=== PATIENT | female | born 1930 | race Caucasian/White ===

== ENCOUNTER → 2016-06-14 | Outpatient (CLI) | payer MEDICARE, OTHER ==
[~2016-06-14] MED LIST: AMLO-114 PO; ASPCH81X PO; ATOR10TA88 PO; CHOL100010 PO; LEVO25TA PO; LOSA1TAB PO; PSYL0.524 PO
[2016-06-14 14:25] LABS: BLOOD UREA NITROGEN 12 mg/dl (7-18); BUN/CREATININE RATIO 13.8 (10-20); CALCIUM 9.3 mg/dl (8.5-10.1); CARBON DIOXIDE 27 mmol/L (21-32); CHLORIDE 105 mmol/L (98-107); CREATININE 0.86 mg/dl (0.60-1.20); GLUCOSE 88 mg/dl (70-99); POTASSIUM 4.1 mmol/L (3.5-5.1); SODIUM 142 mmol/L (136-145)
[2016-06-14 18:57] LABS: URINE APPEARANCE CLEAR (CLEAR); URINE BILIRUBIN NEG (NEG); URINE COLOR DK YELLOW; URINE EPITHELIAL CELL AUTO >30 /lpf (0-5); URINE NITRITE NEG (NEG); URINE PH 5.5 (4.5-7.5); URINE SPECIFIC GRAVITY 1.023 (1.000-1.030); UROBILINOGEN NEG (NEG); ZZUR CULT IF INDIC CLEAN CATCH YES
[2016-06-14 19:04] LABS: MANUAL MICROSCOPIC REQUIRED? NO; REVIEW REQ? YES
[2016-06-14 19:15] LABS: URINE MUCUS PRESENT (NONE PRSENT)
== END | disposition home or self-care (01) ==
LOC: C.LABBFT 07:40
PROVIDERS: ATTEND Internal Medicine
DX: E03.9 Hypothyroidism, unspecified (principal); I10 Essential (primary) hypertension; E55.9 Vitamin D deficiency, unspecified

== ENCOUNTER → 2016-12-24 | Outpatient (CLI) | payer MEDICARE ==
[2016-12-24 12:26] LABS: BASO % 0.8 %; BASO ABS # 0.04 K/uL (0-0.2); COMPLETE YES; EOS % 4.3 %; IG% 0.4 %; LYMPH % 27.4 %; LYMPH ABS # 1.45 K/uL (1.2-3.4); MEAN CELL VOLUME 92.5 fL (80-100); MEAN CORPUSCULAR HGB CONC 32.4 g/dl (32-36); MEAN PLATELET VOLUME 9.9 fL (7.4-10.4); MONO % 13.4 %; NEUT % 53.7 %; PLATELET COUNT 292 K/uL (130-400); RED BLOOD COUNT 4.54 M/uL (4.2-5.4)
[2016-12-24 14:59] LABS: AST/SGOT 14 U/L (15-37); BLOOD UREA NITROGEN 10 mg/dl (7-18); BUN/CREATININE RATIO 14.6 (10-20); CALCIUM 9.3 mg/dl (8.5-10.1); CARBON DIOXIDE 29 mmol/L (21-32); CHLORIDE 107 mmol/L (98-107); CREATININE 0.71 mg/dl (0.60-1.20); GLUCOSE 87 mg/dl (70-99); POTASSIUM 4.2 mmol/L (3.5-5.1); SODIUM 142 mmol/L (136-145)
[2016-12-24 15:10] LABS: ALB/GLOB RATIO 0.9 (0.9-2); ALKALINE PHOSPHATASE 65 U/L (45-117); ALT/SGPT 21 U/L (12-78); CHOLESTEROL 186 mg/dl (0-200); CHOLESTEROL/HDL RATIO 2.3; HDL CHOLESTEROL 80 mg/dl; LDL CHOLESTEROL CALCULATED 84 mg/dl; TRIGLYCERIDES 108 mg/dl (0-150); VERY LOW DENSITY LIPOPROT CALC 22 mg/dl
== END | disposition home or self-care (01) ==
LOC: C.LABBFT 07:32
PROVIDERS: ATTEND Internal Medicine
DX: I10 Essential (primary) hypertension (principal); E55.9 Vitamin D deficiency, unspecified; E78.5 Hyperlipidemia, unspecified; E03.9 Hypothyroidism, unspecified

== ENCOUNTER → 2017-08-12 | Outpatient (CLI) | payer MEDICARE ==
[~2017-08-12] MED LIST changes: +ATOR10TA82 PO; -ATOR10TA88 PO
== END | disposition home or self-care (01) ==
LOC: C.LABBFT 07:16
PROVIDERS: ATTEND Internal Medicine
DX: E03.9 Hypothyroidism, unspecified (principal)

== ENCOUNTER → 2017-09-17 | Outpatient (CLI) | payer MEDICARE ==
[2017-09-17 12:25] LABS: BASO % 0.4 %; BASO ABS # 0.02 K/uL (0-0.2); EOS % 0.2 %; EOS ABS # 0.01 K/uL (0-0.5); HEMATOCRIT 37.5 % (37-47); IG# 0.02 K/uL (0.00-0.02); LYMPH % 26.4 %; LYMPH ABS # 1.41 K/uL (1.2-3.4); MEAN CELL VOLUME 87.6 fL (80-100); MEAN CORPUSCULAR HEMOGLOBIN 30.4 pg (25-34); MEAN CORPUSCULAR HGB CONC 34.7 g/dl (32-36); MEAN PLATELET VOLUME 9.8 fL (7.4-10.4); MONO % 14.4 %; MONO ABS # 0.77 K/uL (0.11-0.59); NEUT % 58.2 %; NEUT ABS # 3.12 K/uL (1.4-6.5); PLATELET COUNT 245 K/uL (130-400); RED CELL DISTRIBUTION WIDTH SD 44.7 fL (36.4-46.3); WHITE BLOOD COUNT 5.35 K/uL (4.8-10.8)
[2017-09-17 12:33] LABS: ALBUMIN 3.3 gm/dl (3.4-5.0); ALT/SGPT 23 U/L (12-78); AST/SGOT 22 U/L (15-37); BLOOD UREA NITROGEN 11 mg/dl (7-18); CALCIUM 8.3 mg/dl (8.5-10.1); CARBON DIOXIDE 24 mmol/L (21-32); GLUCOSE 104 mg/dl (70-99); POTASSIUM 3.3 mmol/L (3.5-5.1); SODIUM 131 mmol/L (136-145)
[2017-09-17 12:44] LABS: ALKALINE PHOSPHATASE 52 U/L (45-117); TOTAL PROTEIN 6.9 gm/dl (6.4-8.2)
== END | disposition home or self-care (01) ==
LOC: C.LABBFT 10:30
PROVIDERS: ATTEND Nurse Practitioner
DX: R53.81 Other malaise (principal); R53.1 Weakness

== ENCOUNTER 2017-09-19 09:34 | Emergency (ER) | payer MEDICARE ==
[~2017-09-19] VITALS: Ht 157.5 cm; Wt 60.0 kg
[2017-09-19 09:39] VITALS: TEMP 36.8; Ht 157.5 cm; Wt 60.0 kg
[2017-09-19] MEDS ORDERED: SODIUM CHLORIDE 0.9% 500ML 500 ML IV STA (09:54)
[2017-09-19 10:23] LABS: BASO % 0.3 %; BASO ABS # 0.02 K/uL (0-0.2); EOS ABS # 0.06 K/uL (0-0.5); HEMATOCRIT 37.2 % (37-47); HEMOGLOBIN 12.9 g/dL (12.0-16.0); IG# 0.01 K/uL (0.00-0.02); LYMPH ABS # 1.46 K/uL (1.2-3.4); MEAN CELL VOLUME 87.5 fL (80-100); MEAN CORPUSCULAR HEMOGLOBIN 30.4 pg (25-34); MEAN CORPUSCULAR HGB CONC 34.7 g/dl (32-36); MEAN PLATELET VOLUME 9.1 fL (7.4-10.4); MONO % 13.8 %; MONO ABS # 0.81 K/uL (0.11-0.59); NEUT % 59.7 %; NEUT ABS # 3.49 K/uL (1.4-6.5); PLATELET COUNT 241 K/uL (130-400); RED CELL DISTRIBUTION WIDTH CV 13.9 % (11.5-14.5); RED CELL DISTRIBUTION WIDTH SD 44.2 fL (36.4-46.3); WHITE BLOOD COUNT 5.85 K/uL (4.8-10.8)
[2017-09-19 10:29] LABS: PTT PATIENT 23.8 SECONDS (21.0-31.0)
[2017-09-19 10:38] LABS: ALBUMIN 3.3 gm/dl (3.4-5.0); CALCIUM 8.4 mg/dl (8.5-10.1); CREATININE 0.71 mg/dl (0.60-1.20); POTASSIUM 3.6 mmol/L (3.5-5.1)
[2017-09-19 10:41] LABS: TOTAL PROTEIN 6.7 gm/dl (6.4-8.2)
--- NOTE | 2017-09-19 10:49 | DIAGNOSTIC IMAGING REPORT ---
CT OF THE HEAD WITHOUT CONTRAST CLINICAL HISTORY: Fall. Head injury. Evaluate for bleed. COMPARISON STUDY: MRI of the brain September 11, 2012. CT DOSE: 537.48 mGy.cm TECHNIQUE: Helical axial images of the head were obtained without IV contrast. Automated exposure control was utilized for the study. A dose lowering technique was utilized adhering to the principles of ALARA. FINDINGS: No acute intracranial hemorrhage, midline shift or mass effect is present. Ventricular system is normal for age. The basilar cisterns are patent. There are no extra axial collections. White matter hypodensity suggests small vessel disease. There is no calvarial fracture. A left maxillary sinus mucous retention cyst is noted. IMPRESSION: 1. No acute intracranial findings. 2. No calvarial fracture. Electronically signed by: Bright Abel M.D. 09/19/2017 10:48 AM Dictated Date/Time: 09/19/2017 10:45 AM
--- NOTE | 2017-09-19 11:23 | DIAGNOSTIC IMAGING REPORT ---
CHEST 2 VIEWS ROUTINE CLINICAL HISTORY: eval for pna COMPARISON STUDY: No previous studies for comparison. FINDINGS: Lung volumes are normal. No pneumothorax or pleural effusion is noted. There is no consolidation or evidence for pulmonary edema. Mild cardiomegaly is noted. IMPRESSION: 1. No acute cardiopulmonary findings. 2. Mild cardiomegaly. Electronically signed by: Bright Abel M.D. 09/19/2017 11:22 AM Dictated Date/Time: 09/19/2017 11:20 AM
--- NOTE | 2017-09-19 12:29 | DIAGNOSTIC IMAGING REPORT ---
CAROTID ARTERY ULTRASOUND CLINICAL HISTORY: Fall. Head injury. Evaluate for stenosis. COMPARISON STUDY: MRA of the neck December 18, 2012. TECHNIQUE: Real-time, grayscale, and color Doppler sonography of the carotid and vertebral arteries was performed. Images were viewed in the transverse and longitudinal planes. FINDINGS: There is mild atherosclerotic plaque. Velocity measurements are listed below. COMMON CAROTID PEAK SYSTOLIC VELOCITY (CM/S): RIGHT 89 LEFT 84 ICA PEAK SYSTOLIC VELOCITY (CM/S): RIGHT 71 LEFT 97 Systolic ratios between the internal to common carotid arteries are normal. Antegrade flow is seen in the vertebral arteries. The external carotid arteries are patent. Blood pressure in the right arm measured 142/59. Blood pressure in the left arm measured 112/53. IMPRESSION: No evidence of a hemodynamically significant stenosis. Electronically signed by: Bright Abel M.D. 09/19/2017 12:27 PM Dictated Date/Time: 09/19/2017 12:26 PM
[2017-09-19] MEDS ORDERED: CEPH500C2 PO (12:47)
[2017-09-19 13:00] VITALS: BP 119/62; PULSE 77; O2SAT 95
--- NOTE | 2017-09-19 16:27 | EMERGENCY ROOM VISIT NOTE ---
History Report prepared by Diana: Bernadine Jones Under the Supervision of: Dr. Kishore Richardson M.D. First contact with patient: 09:44 Chief Complaint: HEAD INJURY (MINOR) Stated Complaint: HEAD INJURY, WEAKNESS History of Present Illness The patient is a 87 year old female who presents to the Emergency Room with complaints of an episode of a fall occurring on Friday, seven days ago. The patient reports she was on her knees to plug in a heater and she slipped on the wooden floor and hit her head. Since Friday, six days ago, the patient has had a decreased appetite, decreased energy and a decreased appetite. She denies any headache, chest pressure or discomfort, shortness of breath, nausea, abdominal pain, black or bloody stools, cough or cold symptoms, or difficulty urinating. The patient states she has only been able to eat an Italian muffin and soup over the past couple days. On Friday, two days ago, the patient had blood work done where she had a temperature of 99 degrees Fahrenheit. The patient has a history of hypertension, high cholesterol, and hypothyroidism. She is on blood pressure medication which she takes regularly. She denies missing any doses of her medication. She denies any lightheadedness when she stands up. The patient reports having a small bowel movement this morning which was normal. Source of History: patient Onset: 7 days ago Position: other (Generalized) Quality: other (Lightheadedness) Timing: constant Modifying Factors (Relieving): other (None) Associated Symptoms: + fatigue, No headache, No cough, No chest pain, No SOB , No nausea, No abdominal pain, No urinary symptoms Review of Systems See HPI for pertinent positives & negatives. A total of 10 systems reviewed and were otherwise negative. Past Medical & Surgical Medical Problems: (1) High cholesterol (2) Hypertension (3) Hypothyroidism Family History Patient reports no known family medical history. Social History Smoking Status: Never Smoker Marital Status: Current/Historical Medications Scheduled Amlodipine (Norvasc), 10 MG PO DAILY Aspirin (Aspirin Chewable), 81 MG PO DAILY Atorvastatin (Lipitor), 10 MG PO DAILY Cephalexin Monohydrate (Keflex), 500 MG PO TID Cholecalciferol (Vitamin D), 1,000 INTER.UNIT PO DAILY Levothyroxine Sodium (Synthroid), 25 MCG PO DAILY Losartan Potassium (Cozaar), 25 MG PO DAILY Scheduled PRN Psyllium (Metamucil), PO for daily Allergies Coded Allergies: Iodinated Contrast Media (Verified Allergy, Severe, ANAPHYLAXIS, 09/22/12) Physical Exam Vital Signs Date Time Temp Pulse Resp B/P (MAP) Pulse Ox O2 Delivery O2 Flow Rate FiO2 09/19/17 13:00 77 20 119/62 95 Room Air 09/19/17 11:30 76 20 122/59 98 Room Air 09/19/17 10:30 71 109/58 96 Room Air 81 109/52 81 104/49 09/19/17 09:39 36.8 83 18 92/56 96 Room Air Physical Exam Constitutional: Vital signs reviewed. Eyes: Pupils are equal round reactive to light. Conjunctiva are noninjected. ENT: Ecchymosis to right forehead, no facial tenderness. Pharynx is clear without erythema or exudate. Mucous membranes are dry. Neck supple without meningeal signs. Respiratory: Clear to auscultation bilaterally. Breath sounds are equal bilaterally. Cardiovascular: Bilateral carotid bruit with systolic heart murmur. Regular rate and rhythm. GI: Soft, nondistended and nontender. Bowel sounds are present. Musculoskeletal: No peripheral edema. No lower extremity tenderness. Integumentary: No cyanosis. Neurological: The patient is awake and alert. Cranial nerves II-XII are intact. Motor is 5 out of 5 all extremities. Sensation is intact to light touch all extremities. Normal speech. No pronator drift. Psychiatric: Normal affect. Medical Decision & Procedures ER Provider Diagnostic Interpretation: Radiology results as stated below per my review and the radiologist's interpretation: CT OF THE HEAD WITHOUT CONTRAST FINDINGS: No acute intracranial hemorrhage, midline shift or mass effect is present. Ventricular system is normal for age. The basilar cisterns are patent. There are no extra axial collections. White matter hypodensity suggests small vessel disease. There is no calvarial fracture. A left maxillary sinus mucous retention cyst is noted. IMPRESSION: 1. No acute intracranial findings. 2. No calvarial fracture. Electronically signed by: Bright Abel M.D. CAROTID ARTERY ULTRASOUND FINDINGS: There is mild atherosclerotic plaque. Velocity measurements are listed below. COMMON CAROTID PEAK SYSTOLIC VELOCITY (CM/S): RIGHT 89 LEFT 84 ICA PEAK SYSTOLIC VELOCITY (CM/S): RIGHT 71 LEFT 97 Systolic ratios between the internal to common carotid arteries are normal. Antegrade flow is seen in the vertebral arteries. The external carotid arteries are patent. Blood pressure in the right arm measured 142/59. Blood pressure in the left arm measured 112/53. IMPRESSION: No evidence of a hemodynamically significant stenosis. Electronically signed by: Bright Abel M.D. CHEST 2 VIEWS ROUTINE FINDINGS: Lung volumes are normal. No pneumothorax or pleural effusion is noted. There is no consolidation or evidence for pulmonary edema. Mild cardiomegaly is noted. IMPRESSION: 1. No acute cardiopulmonary findings. 2. Mild cardiomegaly. Electronically signed by: Bright Abel M.D. Laboratory Results 09/19/17 10:10 Red Blood Count 4.25, Mean Corpuscular Volume 87.5, Mean Corpuscular Hemoglobin 30.4, Mean Corpuscular Hemoglobin Concent 34.7, Mean Platelet Volume 9.1, Neutrophils (%) (Auto) 59.7, Lymphocytes (%) (Auto) 25.0, Monocytes (%) (Auto) 13.8, Eosinophils (%) (Auto) 1.0, Basophils (%) (Auto) 0.3, Neutrophils # (Auto ) 3.49, Lymphocytes # (Auto) 1.46, Monocytes # (Auto) 0.81, Eosinophils # (Auto ) 0.06, Basophils # (Auto) 0.02 09/19/17 10:10 Test 09/19/17 10:10 09/19/17 10:13 09/19/17 11:10 White Blood Count 5.85 K/uL (4.8-10.8) Red Blood Count 4.25 M/uL (4.2-5.4) Hemoglobin 12.9 g/dL (12.0-16.0) Hematocrit 37.2 % (37-47) Mean Corpuscular Volume 87.5 fL (80-100) Mean Corpuscular Hemoglobin 30.4 pg (25-34) Mean Corpuscular Hemoglobin Concent 34.7 g/dl (32-36) Platelet Count 241 K/uL (130-400) Mean Platelet Volume 9.1 fL (7.4-10.4) Neutrophils (%) (Auto) 59.7 % Lymphocytes (%) (Auto) 25.0 % Monocytes (%) (Auto) 13.8 % Eosinophils (%) (Auto) 1.0 % Basophils (%) (Auto) 0.3 % Neutrophils # (Auto) 3.49 K/uL (1.4-6.5) Lymphocytes # (Auto) 1.46 K/uL (1.2-3.4) Monocytes # (Auto) 0.81 K/uL (0.11-0.59) Eosinophils # (Auto) 0.06 K/uL (0-0.5) Basophils # (Auto) 0.02 K/uL (0-0.2) RDW Standard Deviation 44.2 fL (36.4-46.3) RDW Coefficient of Variation 13.9 % (11.5-14.5) Immature Granulocyte % (Auto) 0.2 % Immature Granulocyte # (Auto) 0.01 K/uL (0.00-0.02) Prothrombin Time 10.7 SECONDS (9.0-12.0) Prothromb Time International Ratio 1.0 (0.9-1.1) Activated Partial Thromboplast Time 23.8 SECONDS (21.0-31.0) Partial Thromboplastin Ratio 0.9 Anion Gap 5.0 mmol/L (3-11) Est Creatinine Clear Calc Drug Dose 44.2 ml/min Estimated GFR () 88.8 Estimated GFR (Non- 76.6 BUN/Creatinine Ratio 12.4 (10-20) Calcium Level 8.4 mg/dl (8.5-10.1) Magnesium Level 2.1 mg/dl (1.8-2.4) Total Bilirubin 0.7 mg/dl (0.2-1) Direct Bilirubin 0.2 mg/dl (0-0.2) Aspartate Amino Transf (AST/SGOT) 14 U/L (15-37) Alanine Aminotransferase (ALT/SGPT) 20 U/L (12-78) Alkaline Phosphatase 51 U/L (45-117) Total Protein 6.7 gm/dl (6.4-8.2) Albumin 3.3 gm/dl (3.4-5.0) Lyme Disease IgG Antibody NEG (NEG) Lyme Disease IgM Antibody NEG (NEG) Bedside Troponin I < 0.030 ng/ml (0-0.045) Urine Color YELLOW Urine Appearance CLEAR (CLEAR) Urine pH 7.5 (4.5-7.5) Urine Specific [place] <= 1.005 (1.000-1.030) Urine Protein NEG (NEG) Urine Glucose (UA) NEG (NEG) Urine Ketones NEG (NEG) Urine Occult Blood TRACE (NEG) Urine Nitrite NEG (NEG) Urine Bilirubin NEG (NEG) Urine Urobilinogen NEG (NEG) Urine Leukocyte Esterase LARGE (NEG) Urine RBC 0-4 /hpf (0-4) Urine WBC 10-30 /hpf (0-5) Urine Epithelial Cells >30 /lpf (0-5) Urine Renal Cells 0-5 /lpf (FEW) Urine Bacteria 1+ (NEG) Laboratory results as reviewed by me. Medications Administered Medications (Trade) Dose Ordered Sig/Carmencita Route Start Time Stop Time Status Last Admin Dose Admin Sodium Chloride 500 ml @ 999 mls/hr Q31M STAT IV 09/19/17 09:54 09/19/17 10:24 DC 09/19/17 10:24 999 MLS/HR ECG Per My Interpretation Indication: weakness Rate (beats per minute): 75 Rhythm: normal sinus Findings: other (no ST elevation, no PVC ) ED Course 0946: The patient was evaluated in room B7. A complete history and physical exam was performed. 0954: Ordered Sodium Chloride 500 ml @ 999 mls/hr IV. 1103: On reassessment, the patient's blood pressure has improved. I discussed the patient's test results thus far with her. She reports she has a history of a murmur and it is not new. 1241: I discussed the patient's test results with her and her family. I offered hospitalization to the patient if she did not feel well enough to go home. She would like to go home and start taking the antibiotic for her UTI and increase her PO. 1255: Upon reevaluation, the patient appeared to have improvement of her symptoms. I discussed tonight's findings with her. She verbalized agreement of the treatment plan. The patient was discharged home. Medical Decision This is an 87-year-old female presents with generalized weakness and a fall. Differential diagnosis includes dehydration, metabolic derangement, anemia, infection, UTI, intracranial hemorrhage. I did perform a limited focused review of portions of the patient's old chart on the electronic medical record. The patient had blood work on September 17 which showed mild hyponatremia and hypokalemia. I did evaluate the patient as noted above. Patient is presenting with generalized weakness for about a week. She also states that she has had no appetite and has not been eating much during the day. She has only been having some soup and may be an Italian muffin. She does appear somewhat dehydrated. She also suffered a head injury prior to her symptoms starting. IV access was established. The patient was placed on a continuous cardiac exercise physiologist. I did treat her with normal saline IV. I did order and personally review the patient' s 12-lead EKG and chest x-ray as described above. Her twelve-lead EKG does not show any signs of acute ischemia. Her chest x-ray is unremarkable. I did order and review the patient's blood work as noted in the electronic medical record. Troponin is negative. She is not anemic. Her hypokalemia is resolved and her hyponatremia is improved. I did order a CT of the head. I did review the images myself as well as the radiology report as described above. There is no evidence of acute process on CT scanning. I did order a urine analysis which does show leukocyte esterase, WBCs and bacteria. I did discuss the test results with the patient and her family. At this time the cause of her generalized weakness is unclear, although certainly not eating or drinking very much for a week has been contributing to this. It is also possible that her UTI may be making her weak as well. We did discuss possible hospitalization but she felt well enough to go home and preferred not to be admitted. I did discuss return instructions with her. I did give her a prescription for Keflex for her UTI. She was advised to eat regular meals or at least use Ensure or boost supplementation. She was discharged in good condition. Head Trauma GCS Score: 15 Medication Reconcilliation Current Medication List: was personally reviewed by me Blood Pressure Screening Patient's blood pressure: Low blood pressure Impression Primary Impression: Generalized weakness Additional Impressions: Acute head injury UTI (urinary tract infection) Scribe Attestation The scribe's documentation has been prepared under my direct and personally reviewed by me in its entirety. I confirm that the note above accurately reflects all work, treatment, procedures, and medical decision making performed by me. Departure Information Dispostion Home / Self-Care Prescriptions Cephalexin Monohydrate (KEFLEX) 500 Mg Cap 500 MG PO TID for 7 Days, #21 CAP Prov: Kishore Richardson M.D. 09/19/17 Referrals Sahil Ceron M.D. (PCP) Forms HOME CARE DOCUMENTATION FORM, IMPORTANT VISIT INFORMATION Patient Instructions ED Head Injury Closed, ED UTI Cystitis Female, ED Weakness [facility], [facility] Additional Instructions You have been examined and treated today on an emergency basis only. This is not a substitute for, or an effort to provide, complete comprehensive medical care. It is impossible to recognize and treat all injuries or illnesses in a single emergency department visit. It is therefore important that you follow up closely with your physician. Call as soon as possible for an appointment. Return for worsening symptoms or if you develop fever, vomiting, chest discomfort, shortness of breath or any other concerning symptoms. Problem Qualifiers Additional Impressions: Acute head injury Encounter type: initial encounter Qualified Codes: S09.90XA - Unspecified injury of head, initial encounter UTI (urinary tract infection) Urinary tract infection type: acute cystitis Hematuria presence: without hematuria Qualified Codes: N30.00 - Acute cystitis without hematuria
== END 2017-09-19 13:07 | disposition home or self-care (01) ==
LOC: C.EDB 09:35
DX: S00.83XA Contusion of other part of head, initial encounter (principal); W22.8XXA Striking against or struck by other objects, initial encounter; Y93.89 Activity, other specified; R53.1 Weakness; N30.00 Acute cystitis without hematuria; R40.2412 Glasgow coma scale score 13-15, at arrival to emergency department; I10 Essential (primary) hypertension; Z79.82 Long term (current) use of aspirin; E78.00 Pure hypercholesterolemia, unspecified; E03.9 Hypothyroidism, unspecified; Z91.041 Radiographic dye allergy status

== ENCOUNTER 2017-09-23 08:25 | Observation (INO) | payer MEDICARE, OTHER ==
[~2017-09-23] VITALS: Ht 157.5 cm; Wt 60.0 kg
[~2017-09-23 08:25] MED LIST changes: +CEPH500C2 PO
[2017-09-23] MEDS ORDERED: SODIUM CHLORIDE 0.9% 500ML 500 ML IV STA (09:26)
[2017-09-23 09:35] LABS: BASO % 0.5 %; BASO ABS # 0.03 K/uL (0-0.2); EOS % 1.4 %; EOS ABS # 0.08 K/uL (0-0.5); HEMATOCRIT 36.7 % (37-47); HEMOGLOBIN 12.6 g/dL (12.0-16.0); IG# 0.09 K/uL (0.00-0.02); LYMPH % 16.4 %; LYMPH ABS # 0.93 K/uL (1.2-3.4); MEAN CELL VOLUME 87.8 fL (80-100); MEAN CORPUSCULAR HEMOGLOBIN 30.1 pg (25-34); MEAN CORPUSCULAR HGB CONC 34.3 g/dl (32-36); MEAN PLATELET VOLUME 9.1 fL (7.4-10.4); MONO ABS # 0.85 K/uL (0.11-0.59); NEUT % 65.1 %; NEUT ABS # 3.69 K/uL (1.4-6.5); PLATELET COUNT 307 K/uL (130-400); RED CELL DISTRIBUTION WIDTH CV 13.9 % (11.5-14.5); RED CELL DISTRIBUTION WIDTH SD 44.3 fL (36.4-46.3); WHITE BLOOD COUNT 5.67 K/uL (4.8-10.8)
[2017-09-23] MEDS ORDERED: CHOL100041 PO (09:45)
[2017-09-23] MEDS ORDERED: LPT20 PO (09:46)
[2017-09-23] MEDS ORDERED: LEVO50TA PO (09:46)
--- NOTE | 2017-09-23 09:46 | DIAGNOSTIC IMAGING REPORT ---
CHEST ONE VIEW PORTABLE CLINICAL HISTORY: 87 years-old Female presenting with Pt c/o weakness. TECHNIQUE: Portable upright AP view of the chest was obtained. COMPARISON: 09/19/2017. FINDINGS: Atherosclerosis of aortic arch. Cardiac silhouette mildly enlarged. No focal opacity. No large effusion or pneumothorax. Osseous structures normal. Upper abdomen normal. IMPRESSION: 1. Mild cardiomegaly. No other convincing evidence of acute cardiopulmonary disease. Electronically signed by: Sreekanth Mendoza M.D. 09/23/2017 9:45 AM Dictated Date/Time: 09/23/2017 9:44 AM
[2017-09-23 09:51] LABS: ALBUMIN 3.1 gm/dl (3.4-5.0); ALT/SGPT 19 U/L (12-78); AST/SGOT 13 U/L (15-37); BLOOD UREA NITROGEN 11 mg/dl (7-18); CALCIUM 8.6 mg/dl (8.5-10.1); CARBON DIOXIDE 26 mmol/L (21-32); CREATININE 0.67 mg/dl (0.60-1.20); GLUCOSE 109 mg/dl (70-99); POTASSIUM 3.5 mmol/L (3.5-5.1); SODIUM 136 mmol/L (136-145)
[2017-09-23] MEDS ORDERED: POTASSIUM CHLORIDE 20 MEQ TABCR PO STA (09:52)
[2017-09-23 10:05] LABS: ALKALINE PHOSPHATASE 57 U/L (45-117); CKMB 0.7 ng/ml (0.5-3.6); TOTAL PROTEIN 6.5 gm/dl (6.4-8.2)
[2017-09-23] MEDS ORDERED: POTASSIUM CHLORIDE 10 MEQ TABCR ONE (10:20)
[2017-09-23 10:21] LABS: INFLUENZA B ANTIGEN Neg for Influ B (NEG)
--- NOTE | 2017-09-23 10:40 | DIAGNOSTIC IMAGING REPORT ---
HEAD CT NONCONTRAST CT DOSE: 537.48 mGy.cm HISTORY: Pt c/o fall, weakness TECHNIQUE: Multiaxial CT images of the head were performed without the use of intravenous contrast. Automated exposure control was utilized for this study. A dose lowering technique was utilized adhering to the principles of ALARA. Comparison: Head CT 09/19/2017. Findings: Small retention cysts within the left maxillary sinus. The mastoid air cells are clear. The calvarium and skull base are intact. There is no mass, hematoma, midline shift, acute infarct. White matter hypodensity is nonspecific but suggestive of microvascular ischemic change. The ventricles and sulci demonstrate mild age-related involutional changes. Impression: No significant change compared to the prior study. No acute intracranial abnormality. Electronically signed by: Addi Genao M.D. 09/23/2017 10:38 AM Dictated Date/Time: 09/23/2017 10:33 AM
--- NOTE | 2017-09-23 11:10 | ECHOCARDIOGRAM REPORT ---
*NOTICE TO RECEIVING CONSTITUTION PARTY AGENCY This information is strictly Confidential and protected under [place] law. [place] law prohibits you from making any further disclosure of this information unless further disclosure is expressly permitted by the written consent of the person to whom it pertains or is authorized by law. A general authorization for the release of medical or other information is not sufficient for this purpose. Hospital accepts no responsibility if the information is made available to any other person, INCLUDING THE PATIENT. Interpretation Summary * Name: ANJELICA ROMANO Study Date: 09/23/2017 09:50 AM BP: 121/56 mmHg * Patient Location: [facility] HR: 81 * : 1930 (M/d/yyyy) Gender: Female Height: 62 in * Age: 87 yrs Ethnicity: [place] Weight: 132 lb * Ordering Physician: Jamar Harrison * Referring Physician: Self, Referred * Performed By: Carmencita Wray RDCS * * Reason For Study: MURMURS * BSA: 1.6 m2 * -- Conclusions -- * There is mild concentric left ventricular hypertrophy. * Left ventricular systolic function is normal. * Grade I diastolic dysfunction, (abnormal relaxation pattern). * Moderate valvular aortic stenosis. * There is mild mitral annular calcification. * There is mild mitral regurgitation. * Compared to an echocardiogram from 12/21/2014, there has been minimal change. Procedure Details * A complete two-dimensional transthoracic echocardiogram was performed (2D, M-mode, Doppler and color flow Doppler). Left Ventricle * The left ventricle is normal in size. * There is mild concentric left ventricular hypertrophy. * Left ventricular systolic function is normal. * Ejection Fraction = 55-60%. * Grade I diastolic dysfunction, (abnormal relaxation pattern). * The left ventricular wall motion is normal. Right Ventricle * The right ventricle is normal in size and function. * The right ventricular systolic function is normal as assessed by tricuspid annular plane systolic excursion (TAPSE) (normal >1.5 cm). Atria * The left atrial size is normal. * Right atrial size is normal. Mitral Valve * There is mild mitral annular calcification. * There is mild mitral regurgitation. Tricuspid Valve * The tricuspid valve is not well visualized, but is grossly normal. * Significant tricuspid regurgitation is absent. Aortic Valve * Moderate valvular aortic stenosis. * There is no significant aortic regurgitation. Pulmonic Valve * The pulmonic valve is not well visualized. Pericardium/Pleural * There is no pericardial effusion. MMode 2D Measurements and Calculations IVSd 1.2 cm IVSs 1.6 cm LVIDd 4.0 cm LVIDs 2.6 cm LVPWd 1.1 cm LVPWs 1.7 cm IVS/LVPW 1.0 FS 35.7 % EDV(Teich) 71.7 ml ESV(Teich) 24.6 ml EF(Teich) 65.7 % EDV(cubed) 65.9 ml ESV(cubed) 17.5 ml EF(cubed) 73.4 % % IVS thick 38.0 % % LVPW thick 43.7 % LV mass(C)d 159.1 grams LV mass(C)dI 99.3 grams/m\S\2 LV mass(C)s 153.0 grams LV mass(C)sI 95.5 grams/m\S\2 SV(Teich) 47.1 ml SI(Teich) 29.4 ml/m\S\2 SV(cubed) 48.4 ml SI(cubed) 30.2 ml/m\S\2 LVOT diam 2.0 cm LVOT area 3.3 cm\S\2 LVAd ap4 20.9 cm\S\2 LVLd ap4 6.9 cm EDV(MOD-sp4) 54.6 ml EDV(sp4-el) 54.2 ml LVAs ap4 10.4 cm\S\2 LVLs ap4 5.7 cm ESV(MOD-sp4) 16.7 ml ESV(sp4-el) 16.1 ml EF(MOD-sp4) 69.4 % EF(sp4-el) 70.2 % LVAd ap2 21.2 cm\S\2 LVLd ap2 7.0 cm EDV(MOD-sp2) 52.3 ml EDV(sp2-el) 54.0 ml LVAs ap2 11.3 cm\S\2 LVLs ap2 6.1 cm ESV(MOD-sp2) 18.9 ml ESV(sp2-el) 18.0 ml EF(MOD-sp2) 63.8 % EF(sp2-el) 66.7 % LVLd %diff 2.4 % EDV(MOD-bp) 54.1 ml LVLs %diff 6.4 % ESV(MOD-bp) 17.7 ml EF(MOD-bp) 67.3 % SV(MOD-sp4) 37.9 ml SI(MOD-sp4) 23.7 ml/m\S\2 SV(MOD-sp2) 33.4 ml SI(MOD-sp2) 20.8 ml/m\S\2 SV(MOD-bp) 36.4 ml SI(MOD-bp) 22.7 ml/m\S\2 SV(sp4-el) 38.0 ml SI(sp4-el) 23.7 ml/m\S\2 SV(sp2-el) 36.0 ml SI(sp2-el) 22.5 ml/m\S\2 Doppler Measurements and Calculations MV E max miles 90.3 cm/sec MV A max miles 120.9 cm/sec MV E/A 0.75 MV dec time 0.23 sec Ao V2 max 292.6 cm/sec Ao max PG 34.2 mmHg Ao max PG (full) 30.2 mmHg Ao V2 mean 201.9 cm/sec Ao mean PG 17.6 mmHg Ao mean PG (full) 16.0 mmHg Ao V2 VTI 55.4 cm NKECHI(I,A) 1.2 cm\S\2 NKECHI(I,D) 1.2 cm\S\2 NKECHI(V,A) 1.1 cm\S\2 NKECHI(V,D) 1.1 cm\S\2 LV V1 max PG 4.0 mmHg LV V1 mean PG 1.6 mmHg LV V1 max 100.1 cm/sec LV V1 mean 57.2 cm/sec LV V1 VTI 20.3 cm SV(LVOT) 66.5 ml SI(LVOT) 41.5 ml/m\S\2
[2017-09-23] MEDS ORDERED: ONDANSETRON INJ 2 MG/ML 2 ML VIAL IV PRN (11:30)
[2017-09-23] MEDS ORDERED: ALUMINUM/MAGNESIUM/SIMETH (MAALOX MAX) 30 ML UDC PO PRN (11:30)
[2017-09-23] MEDS ORDERED: HEPARIN SOD 5000 UNIT/0.5 ML CARP SQ SCH (11:30)
[2017-09-23] MEDS ORDERED: ACETAMINOPHEN 325 MG TAB PO PRN (11:30)
[2017-09-23] MEDS ORDERED: MAGNESIUM HYDROXIDE SUSP 30 ML UDC PO PRN (11:30)
[2017-09-23] MEDS ORDERED: POLYETHYLENE (MIRALAX) 17 GM PACK PO PRN (11:30)
--- NOTE | 2017-09-23 11:49 | EMERGENCY ROOM VISIT NOTE ---
History Report prepared by Diana: Juice Saeed Under the Supervision of: Dr. Jamar Harrison M.D. First contact with patient: 09:16 Chief Complaint: WEAKNESS Stated Complaint: WEAKNESS, NO APPETITE History of Present Illness The patient is an 87 year old female who presents to the Emergency Room with complaints of worsening weakness and fatigue that began on Friday, 4 days ago. The patient's grandson at bedside states that the patient was in the department in Friday, but notes that her symptoms have worsened since then. The patient has no appetite at this time. She adds that she did fall 11 days ago and hit her head. She is not currently having any headache. Source of History: patient, family Onset: 4 days ago Position: other (Generalized) Quality: other (Weakness) Timing: worsening Associated Symptoms: No headache Review of Systems See HPI for pertinent positives & negatives. A total of 10 systems reviewed and were otherwise negative. Past Medical & Surgical Medical Problems: (1) Gait abnormality (2) High cholesterol (3) Hypertension (4) Hypothyroidism Family History Patient reports no known family medical history. Social History Smoking Status: Former Smoker Marital Status: Current/Historical Medications Scheduled Amlodipine (Norvasc), 10 MG PO DAILY Aspirin (Aspirin Chewable), 81 MG PO DAILY Atorvastatin (Lipitor), 20 MG PO DAILY Cholecalciferol (D 1000), 1,000 UNITS PO DAILY Levothyroxine Sodium (Synthroid), 50 MCG PO DAILY Losartan Potassium (Cozaar), 25 MG PO DAILY Allergies Coded Allergies: Iodinated Contrast Media (Verified Allergy, Severe, ANAPHYLAXIS, 09/23/17) Physical Exam Vital Signs Date Time Temp Pulse Resp B/P (MAP) Pulse Ox O2 Delivery O2 Flow Rate FiO2 09/23/17 11:20 78 15 98 09/23/17 11:05 78 22 96 09/23/17 11:00 79 27 129/52 99 09/23/17 10:45 79 22 97 09/23/17 10:40 138/62 09/23/17 10:15 87 22 95 09/23/17 10:10 80 20 95 09/23/17 10:00 121/56 09/23/17 09:55 79 18 96 09/23/17 09:46 122/58 09/23/17 09:45 117/59 09/23/17 09:44 77 18 117/58 95 Room Air 81 117/59 88 122/58 09/23/17 09:43 117/58 09/23/17 09:40 77 19 95 09/23/17 09:30 118/61 09/23/17 09:25 79 19 95 09/23/17 09:10 81 16 93 09/23/17 09:00 119/59 09/23/17 09:00 85 19 119/59 96 Room Air 09/23/17 08:57 81 09/23/17 08:55 83 23 09/23/17 08:53 114/56 09/23/17 08:50 93 Room Air 09/23/17 08:32 36.6 90 18 93/58 95 Room Air Physical Exam GENERAL: Awake, alert, well-appearing, in no acute distress HENT: There is a healing bruise to the right eye orbit. Oropharynx unremarkable. EYES: Normal conjunctiva. Sclera non-icteric. NECK: Supple. No nuchal rigidity. FROM. No JVD. RESPIRATORY: Clear to auscultation. CARDIAC: Regular rate, normal rhythm. 2/6 systolic murmur appreciated. Extremities warm and well perfused. Pulses equal. ABDOMEN: Soft, non-distended. No tenderness to palpation. No rebound or guarding. No masses. RECTAL: Deferred. MUSCULOSKELETAL: Chest examination reveals no tenderness. The back is symmetrical on inspection without obvious abnormality. There is no CVA tenderness to palpation. No joint edema. LOWER EXTREMITIES: Calves are equal size bilaterally and non-tender. No edema. No discoloration. NEURO: Normal sensorium. No sensory or motor deficits noted. SKIN: No rash or jaundice noted. Medical Decision & Procedures ER Provider Diagnostic Interpretation: Radiology results as stated below per my review and radiologist interpretation: CHEST ONE VIEW PORTABLE CLINICAL HISTORY: 87 years-old Female presenting with Pt c/o weakness. TECHNIQUE: Portable upright AP view of the chest was obtained. COMPARISON: 09/19/2017. FINDINGS: Atherosclerosis of aortic arch. Cardiac silhouette mildly enlarged. No focal opacity. No large effusion or pneumothorax. Osseous structures normal. Upper abdomen normal. IMPRESSION: 1. Mild cardiomegaly. No other convincing evidence of acute cardiopulmonary disease. Electronically signed by: Sreekanth Mendoza M.D. 09/23/2017 9:45 AM Dictated Date/Time: 09/23/2017 9:[address]AST CT DOSE: 537.48 mGy.cm HISTORY: Pt c/o fall, weakness TECHNIQUE: Multiaxial CT images of the head were performed without the use of intravenous contrast. Automated exposure control was utilized for this study. A dose lowering technique was utilized adhering to the principles of ALARA. Comparison: Head CT 09/19/2017. Findings: Small retention cysts within the left maxillary sinus. The mastoid air cells are clear. The calvarium and skull base are intact. There is no mass, hematoma, midline shift, acute infarct. White matter hypodensity is nonspecific but suggestive of microvascular ischemic change. The ventricles and sulci demonstrate mild age-related involutional changes. Impression: No significant change compared to the prior study. No acute intracranial abnormality. Electronically signed by: Addi Genao M.D. 09/23/2017 10:38 AM Dictated Date/Time: 09/23/2017 10:33 AM Laboratory Results 09/23/17 09:00 Red Blood Count 4.18, Mean Corpuscular Volume 87.8, Mean Corpuscular Hemoglobin 30.1, Mean Corpuscular Hemoglobin Concent 34.3, Mean Platelet Volume 9.1, Neutrophils (%) (Auto) 65.1, Lymphocytes (%) (Auto) 16.4, Monocytes (%) (Auto) 15.0, Eosinophils (%) (Auto) 1.4, Basophils (%) (Auto) 0.5, Neutrophils # (Auto ) 3.69, Lymphocytes # (Auto) 0.93, Monocytes # (Auto) 0.85, Eosinophils # (Auto ) 0.08, Basophils # (Auto) 0.03 09/23/17 09:00 Test 09/23/17 08:55 09/23/17 09:00 09/23/17 09:45 Bedside Glucose 116 mg/dl (70-90) White Blood Count 5.67 K/uL (4.8-10.8) Red Blood Count 4.18 M/uL (4.2-5.4) Hemoglobin 12.6 g/dL (12.0-16.0) Hematocrit 36.7 % (37-47) Mean Corpuscular Volume 87.8 fL (80-100) Mean Corpuscular Hemoglobin 30.1 pg (25-34) Mean Corpuscular Hemoglobin Concent 34.3 g/dl (32-36) Platelet Count 307 K/uL (130-400) Mean Platelet Volume 9.1 fL (7.4-10.4) Neutrophils (%) (Auto) 65.1 % Lymphocytes (%) (Auto) 16.4 % Monocytes (%) (Auto) 15.0 % Eosinophils (%) (Auto) 1.4 % Basophils (%) (Auto) 0.5 % Neutrophils # (Auto) 3.69 K/uL (1.4-6.5) Lymphocytes # (Auto) 0.93 K/uL (1.2-3.4) Monocytes # (Auto) 0.85 K/uL (0.11-0.59) Eosinophils # (Auto) 0.08 K/uL (0-0.5) Basophils # (Auto) 0.03 K/uL (0-0.2) RDW Standard Deviation 44.3 fL (36.4-46.3) RDW Coefficient of Variation 13.9 % (11.5-14.5) Immature Granulocyte % (Auto) 1.6 % Immature Granulocyte # (Auto) 0.09 K/uL (0.00-0.02) Erythrocyte Sedimentation Rate 21 mm/hr (0-21) Urine Color YELLOW Urine Appearance CLEAR (CLEAR) Urine pH 6.0 (4.5-7.5) Urine Specific [place] 1.014 (1.000-1.030) Urine Protein NEG (NEG) Urine Glucose (UA) NEG (NEG) Urine Ketones NEG (NEG) Urine Occult Blood NEG (NEG) Urine Nitrite NEG (NEG) Urine Bilirubin NEG (NEG) Urine Urobilinogen NEG (NEG) Urine Leukocyte Esterase NEG (NEG) Anion Gap 7.0 mmol/L (3-11) Est Creatinine Clear Calc Drug Dose 46.8 ml/min Estimated GFR () 91.6 Estimated GFR (Non- 79.0 BUN/Creatinine Ratio 16.3 (10-20) Calcium Level 8.6 mg/dl (8.5-10.1) Phosphorus Level 2.9 mg/dl (2.5-4.9) Magnesium Level 2.0 mg/dl (1.8-2.4) Total Bilirubin 0.4 mg/dl (0.2-1) Direct Bilirubin < 0.1 mg/dl (0-0.2) Aspartate Amino Transf (AST/SGOT) 13 U/L (15-37) Alanine Aminotransferase (ALT/SGPT) 19 U/L (12-78) Alkaline Phosphatase 57 U/L (45-117) Total Creatine Kinase 34 U/L (26-192) Creatine Kinase MB 0.7 ng/ml (0.5-3.6) Creatine Kinase MB Ratio 2.1 (0-3.0) Troponin I < 0.015 ng/ml (0-0.045) Total Protein 6.5 gm/dl (6.4-8.2) Albumin 3.1 gm/dl (3.4-5.0) Thyroid Stimulating Hormone (TSH) 1.310 uIu/ml (0.300-4.500) Influenza Type A Antigen Neg for Influ A (NEG) Influenza Type B Antigen Neg for Influ B (NEG) Labs reviewed by ED physician. Medications Administered Medications (Trade) Dose Ordered Sig/Carmencita Route Start Time Stop Time Status Last Admin Dose Admin Sodium Chloride 500 ml @ 999 mls/hr Q31M STAT IV 09/23/17 09:26 09/23/17 09:56 DC 09/23/17 10:00 999 MLS/HR Potassium Chloride (Klor-Con M10) 40 meq STK-MED ONCE .ROUTE 09/23/17 10:20 09/23/17 10:21 DC 09/23/17 10:30 40 MEQ ECG Per My Interpretation Indication: weakness Rate (beats per minute): 83 Rhythm: normal sinus Findings: other (NOrmal [place], NO ectopy) ED Course 916: Past medical records reviewed. The patient was evaluated in room B9. A complete history and physical examination was performed. 0926: Ordered Sodium Chloride 500 mL @ 999 mL/hr IV 0932: I discussed the case with Dr. Sharma - Cardiology. He will take the patient for a STAT echocardiogram. 0952: Ordered Potassium Chloride 40 meq PO. 1108: Dr. Sharma states that the echocardiogram is unchanged from previous 1129: I discussed the case with Dr. Yovani Clayton - [facility] [place] Hospitalist. He will evaluate the patient for further treatment. 1130: Ordered Heparin Sodium 5000 unit SQ. Medical Decision Differential diagnosis: Etiologies such as metabolic, infection, hypo/hyperglycemia, electrolyte abnormalities, cardiac sources, intracerebral event, toxicologic, neurologic, as well as others were entertained. This is an 87-year-old female who presents the emergency department complaining of generalized weakness that has been getting progressively worse. Patient has had multiple falls at home. Due to the nature of the patient's symptoms a CBC renal profile liver profile lipase cardiac enzymes and EKG were performed she has a normal CAT scan of the head as well as chest x-ray. Due to the patient's past medical history I did discuss the case with cardiology and was able to obtain a stat echo. This does not show any worsening of her aortic stenosis. Patient feels she is too weak to go home she was given a normal saline bolus here in the emergency department and I did discuss the case with the hospitalist service who agreed to admit the patient. Patient and family were in agreement with the treatment plan. Medication Reconcilliation Current Medication List: was personally reviewed by me Blood Pressure Screening Patient's blood pressure: Normal blood pressure Impression Primary Impression: Weakness Additional Impression: Aortic stenosis Scribe Attestation The scribe's documentation has been prepared under my direction and personally reviewed by me in its entirety. I confirm that the note above accurately reflects all work, treatment, procedures, and medical decision making performed by me. Departure Information Dispostion Being Evaluated By Hospitalist Referrals Sahil Ceron M.D. (PCP) Patient Instructions My [facility] Problem Qualifiers Additional Impression: Aortic stenosis Cardiac valve disease etiology: etiology unspecified Qualified Codes: I35.0 - Nonrheumatic aortic (valve) stenosis
[2017-09-23 11:55] VITALS: BP 128/72; PULSE 80; TEMP 36.6; O2SAT 95; BMI 24.2
--- NOTE | 2017-09-23 12:27 | History and Physical ---
History & Physical Date & Time of Service: September 23, 2017 at 12:09 Chief Complaint: Weakness, No Appetite Primary Care Physician: Sahil Ceron M.D. History of Present Illness Source: patient, family, hospital records 87 y/o F Hx HTN, HPL, hypothyroidism, aortic stenosis. Pt states that approximately 10 days ago she was cleaning her floor, lost her balance and fell , suffering trauma to the R side of her forehead. She felt like the trauma was significant, although she denies LOC at the time. Since suffering the fall, she states she has been progressively weak, off balance and has lost her appetite. Family reports that she is currently unable to transfer without assistance and is therefore unable to manage independently. Initial workup in the ER included labs, echocardiogram and CT of the head. No acute abnormalities are noted. Past Medical/Surgical History 1) Moderate aortic stenosis 2) HTN 3) HPL 4) Breast CA Family History Patient reports no known family medical history. Social History Smoking Status: Former Smoker Marital Status: Allergies Coded Allergies: Iodinated Contrast Media (Verified Allergy, Severe, ANAPHYLAXIS, 09/23/17) Home Medications Scheduled Amlodipine (Norvasc), 10 MG PO DAILY Aspirin (Aspirin Chewable), 81 MG PO DAILY Atorvastatin (Lipitor), 20 MG PO DAILY Cholecalciferol (D 1000), 1,000 UNITS PO DAILY Levothyroxine Sodium (Synthroid), 50 MCG PO DAILY Losartan Potassium (Cozaar), 25 MG PO DAILY Review of Systems Constitutional: + weakness, No fever, No chills, No sweats Eyes: No worsening of vision ENT: No hearing loss, No unusual epistaxis, No nasal symptoms Respiratory: No cough, No sputum Cardiovascular: No chest pain, No orthopnea Abdomen: No pain, No nausea Musculoskeletal: No joint pain Genitourinary - Female: No dysuria, No urinary frequency Neurologic: + weakness, No memory loss, No paralysis Psychiatric: No depression symptoms Endocrine: + fatigue Hematologic / Lymphatic: No abnormal bleeding/bruising Integumentary: No rash Allergic / Immunologic: No environmental allergies Physical Exam Vital Signs Date Time Temp Pulse Resp B/P (MAP) Pulse Ox O2 Delivery O2 Flow Rate FiO2 09/23/17 11:00 79 27 129/52 99 09/23/17 10:45 79 22 97 09/23/17 10:40 138/62 09/23/17 10:15 87 22 95 09/23/17 10:10 80 20 95 09/23/17 10:00 121/56 09/23/17 09:55 79 18 96 09/23/17 09:46 122/58 09/23/17 09:45 117/59 09/23/17 09:44 77 18 117/58 95 Room Air 81 117/59 88 122/58 09/23/17 09:43 117/58 09/23/17 09:40 77 19 95 09/23/17 09:30 118/61 09/23/17 09:25 79 19 95 09/23/17 09:10 81 16 93 09/23/17 09:00 119/59 09/23/17 09:00 85 19 119/59 96 Room Air 09/23/17 08:57 81 09/23/17 08:55 83 23 09/23/17 08:53 114/56 09/23/17 08:50 93 Room Air 09/23/17 08:32 36.6 90 18 93/58 95 Room Air General Appearance: WD/WN, no apparent distress Head: normocephalic Eyes: normal inspection ENT: normal ENT inspection, pharynx normal Neck: supple Respiratory/Chest: chest non-tender, lungs clear, normal breath sounds Cardiovascular: regular rate, rhythm, no edema, + systolic murmur Abdomen/GI: normal bowel sounds, non tender, soft Back: normal inspection, no CVA tenderness Extremities/Musculoskelatal: normal inspection, no calf tenderness, normal capillary refill Neurologic/Psych: nurse ob II-XII nml as tested, no motor/sensory deficits, alert, oriented x 3, + abnormal cerebellar tests Diagnostics Laboratory Results Results Past 24 Hours Test 09/23/17 09:00 09/23/17 09:45 Range/Units White Blood Count 5.67 4.8-10.8 K/uL Red Blood Count 4.18 4.2-5.4 M/uL Hemoglobin 12.6 12.0-16.0 g/dL Hematocrit 36.7 37-47 % Mean Corpuscular Volume 87.8 80-100 fL Mean Corpuscular Hemoglobin 30.1 25-34 pg Mean Corpuscular Hemoglobin Concent 34.3 32-36 g/dl Platelet Count 307 130-400 K/uL Mean Platelet Volume 9.1 7.4-10.4 fL Neutrophils (%) (Auto) 65.1 % Lymphocytes (%) (Auto) 16.4 % Monocytes (%) (Auto) 15.0 % Eosinophils (%) (Auto) 1.4 % Basophils (%) (Auto) 0.5 % Neutrophils # (Auto) 3.69 1.4-6.5 K/uL Lymphocytes # (Auto) 0.93 1.2-3.4 K/uL Monocytes # (Auto) 0.85 0.11-0.59 K/uL Eosinophils # (Auto) 0.08 0-0.5 K/uL Basophils # (Auto) 0.03 0-0.2 K/uL RDW Standard Deviation 44.3 36.4-46.3 fL RDW Coefficient of Variation 13.9 11.5-14.5 % Immature Granulocyte % (Auto) 1.6 % Immature Granulocyte # (Auto) 0.09 0.00-0.02 K/uL Urine Color YELLOW Urine Appearance CLEAR CLEAR Urine pH 6.0 4.5-7.5 Urine Specific [place] 1.014 1.000-1.030 Urine Protein NEG NEG Urine Glucose (UA) NEG NEG Urine Ketones NEG NEG Urine Occult Blood NEG NEG Urine Nitrite NEG NEG Urine Bilirubin NEG NEG Urine Urobilinogen NEG NEG Urine Leukocyte Esterase NEG NEG Sodium Level 136 136-145 mmol/L Potassium Level 3.5 3.5-5.1 mmol/L Chloride Level 103 98-107 mmol/L Carbon Dioxide Level 26 21-32 mmol/L Anion Gap 7.0 3-11 mmol/L Blood Urea Nitrogen 11 7-18 mg/dl Creatinine 0.67 0.60-1.20 mg/dl Est Creatinine Clear Calc Drug Dose 46.8 ml/min Estimated GFR () 91.6 Estimated GFR (Non- 79.0 BUN/Creatinine Ratio 16.3 10-20 Random Glucose 109 70-99 mg/dl Calcium Level 8.6 8.5-10.1 mg/dl Total Bilirubin 0.4 0.2-1 mg/dl Direct Bilirubin < 0.1 0-0.2 mg/dl Aspartate Amino Transf (AST/SGOT) 13 15-37 U/L Alanine Aminotransferase (ALT/SGPT) 19 12-78 U/L Alkaline Phosphatase 57 45-117 U/L Total Creatine Kinase 34 26-192 U/L Creatine Kinase MB 0.7 0.5-3.6 ng/ml Creatine Kinase MB Ratio 2.1 0-3.0 Troponin I < 0.015 0-0.045 ng/ml Total Protein 6.5 6.4-8.2 gm/dl Albumin 3.1 3.4-5.0 gm/dl Thyroid Stimulating Hormone (TSH) 1.310 0.300-4.500 uIu/ml Influenza Type A Antigen Neg for Influ A NEG Influenza Type B Antigen Neg for Influ B NEG Diagnostic Radiology CT head - no acute abnormalities ECHO: moderate - EF 65% EKG NSR, L axis Impression Assessment and Plan 87 y/o F Hx HTN, HPL, hypothyroidism, aortic stenosis. Pt states that approximately 10 days ago she was cleaning her floor, lost her balance and fell , suffering trauma to the R side of her forehead. She felt like the trauma was significant, although she denies LOC at the time. Since suffering the fall, she states she has been progressively weak, off balance and has lost her appetite. Family reports that she is currently unable to transfer without assistance and is therefore unable to manage independently. Initial workup in the ER included labs, echocardiogram and CT of the head. No acute abnormalities are noted. 1) Weakness - cause is not clear - not likely related to initial head trauma at present. She may need a thorough neuro evaluation. PT/OT consulted as she may need transfer to rehab. 2) HTN - cont Norvasc 3) HPL - cont Atorvastatin 4) -moderate - has not progressed - can f/u as outpt with her neon technician Full code - SCDs due to fall risk Total time for this admit including review of labs, meds, EKG, echo, records - discussion with pt and ER attending - 37 min Resuscitation Status VTE Prophylaxis Will order VTE Prophylaxis: Yes
[2017-09-23 12:48] LABS: PHOSPHORUS 2.9 mg/dl (2.5-4.9)
[2017-09-23] MEDS ORDERED: NURSING DECISION MEDICATION ORDER SCH (15:15)
[2017-09-23] MEDS ORDERED: SODIUM CHLORIDE 0.65% NA SOLN 45 ML (OCEAN) PRN (15:30)
[2017-09-23 15:58] VITALS: BP 102/61; PULSE 88; TEMP 36.7; O2SAT 97
[2017-09-23 16:00] VITALS: O2SAT 97
[2017-09-23] MEDS ORDERED: NURSING VERBAL MED ORDER ONE (16:15)
[2017-09-23] MEDS: LOSARTAN POTASSIUM 25 MG TAB PO SCH (17:05)
[2017-09-23] MEDS: BOOST VANILLA PO SCH (17:05)
[2017-09-23] MEDS: ATORVASTATIN 20 MG TAB PO SCH (20:31)
[2017-09-23 20:37] VITALS: BP_SYST 103; BP_SYST 124; BP_SYST 129; BP_DIAS 65; BP_DIAS 71; O2SAT 74
[2017-09-23 20:40] VITALS: PULSE 74; PULSE 85
[2017-09-24 00:31] VITALS: BP 121/74; PULSE 82; TEMP 36.7; O2SAT 95
[2017-09-24] MEDS: LEVOTHYROXINE 50 MCG TAB PO SCH (06:34)
[2017-09-24 07:33] VITALS: BP_SYST 105; BP_SYST 109; BP_SYST 122; BP_DIAS 69; BP_DIAS 70; BP_DIAS 76; PULSE 81; TEMP 36.4; O2SAT 97
[2017-09-24] MEDS: BOOST VANILLA PO SCH ×3 (07:39→17:08)
[2017-09-24] MEDS: AMLODIPINE BESYLATE 5 MG TAB PO SCH (07:40)
[2017-09-24] MEDS: CHOLECALCIFEROL 1000 INTER.UNIT TAB PO SCH (07:40)
[2017-09-24] MEDS: ASPIRIN 81 MG CHEW PO SCH (07:40)
[2017-09-24 08:00] VITALS: O2SAT 97
[2017-09-24] MEDS ORDERED: LOSARTAN POTASSIUM 25 MG TAB PO SCH (08:00)
[2017-09-24] MEDS ORDERED: ATORVASTATIN 20 MG TAB PO SCH (08:00)
[2017-09-24] MEDS ORDERED: MEGESTROL ACETATE SUSP 400 MG/10 ML UDC PO ONE (11:00)
[2017-09-24] MEDS ORDERED: PANTOprazole SOD 40 MG TAB PO ONE (11:00)
[2017-09-24] MEDS ORDERED: CEPHALEXIN MONOHYDRATE 500 MG CAP PO ONE (11:00)
--- NOTE | 2017-09-24 11:11 | Hospitalist Progress Note ---
Hospitalist Progress Note Date of Service September 24, 2017. Subjective Pt evaluation today including: conversation w/ patient, physical exam, lab review, review of studies, review of inpatient medication list Voiding: no voiding problems Patient resting in bed. +decreased appetite. Per RN, ate no breakfast. +generalized weakness/fatigue. Patient denies any fever, chills, sweats, lightheadedness, dizziness, vision changes, CP, palpitations, edema, SOB, wheezing, cough, abdominal pain, nausea, vomiting, diarrhea, urinary symptoms, melena, numbness/tingling, muscle/joint pain, anxiety/depression, active bleeding, or new skin discoloration/changes. Medications Current Inpatient Medications Medications (Trade) Dose Ordered Sig/Carmencita Route Start Time Stop Time Status Last Admin Dose Admin Acetaminophen (Tylenol Tab) 650 mg Q4H PRN PO 09/23/17 11:30 10/23/17 11:29 Al Hydrox/Mg Hydrox/Simethicone (Maalox Max Susp) 15 ml Q4H PRN PO 09/23/17 11:30 10/23/17 11:29 Magnesium Hydroxide (Milk Of Magnesia Susp) 30 ml Q6H PRN PO 09/23/17 11:30 10/23/17 11:29 Polyethylene (Miralax Powder Packet) 17 gm DAILY PRN PO 09/23/17 11:30 10/23/17 11:29 Ondansetron HCl (Zofran Inj) 4 mg Q6H PRN IV 09/23/17 11:30 10/23/17 11:29 Amlodipine Besylate (Norvasc Tab) 10 mg DAILY PO 09/24/17 08:00 10/24/17 08:59 09/24/17 07:40 10 MG Aspirin (Aspirin Chew) 81 mg DAILY PO 09/24/17 08:00 10/24/17 08:59 09/24/17 07:40 81 MG Levothyroxine Sodium (Synthroid Tab) 50 mcg DAILYBB PO 09/24/17 06:30 10/24/17 06:29 09/24/17 06:34 50 MCG Cholecalciferol (Vitamin D Tab) 1,000 inter.unit DAILY PO 09/24/17 08:00 10/24/17 08:59 09/24/17 07:40 1,000 INTER.UNIT Enteral Nutritional Formula (Boost) 1 can TIDM PO 09/23/17 17:00 10/23/17 16:59 09/24/17 07:39 1 CAN Sodium Chloride ([place]ler Nasal Boomer) 1 sprays PRN PRN NA 09/23/17 15:30 10/23/17 15:29 Losartan Potassium (coZAAR TAB) 25 mg DAILY@1700 PO 09/23/17 17:00 10/23/17 16:59 09/23/17 17:05 25 MG Atorvastatin Calcium (Lipitor Tab) 20 mg DAILY@2100 PO 09/23/17 21:00 10/23/17 20:59 09/23/17 20:31 20 MG Objective Vital Signs Date Time Temp Pulse Resp B/P (MAP) Pulse Ox O2 Delivery O2 Flow Rate FiO2 09/24/17 08:00 97 Room Air 09/24/17 07:33 36.4 81 18 105/69 (81) 97 Room Air 81 122/76 (91) 109/70 (83) 09/24/17 00:31 36.7 82 18 121/74 (90) 95 Room Air 09/24/17 00:30 Room Air 09/23/17 20:40 74 85 85 09/23/17 20:37 124/71 (88) 74 129/71 (90) 103/65 (78) 09/23/17 16:00 97 Room Air 09/23/17 15:58 36.7 88 18 102/61 (75) 97 Room Air 09/23/17 12:40 19 119/55 95 09/23/17 12:05 78 20 09/23/17 11:55 36.6 80 18 128/72 95 09/23/17 11:35 80 17 97 09/23/17 11:30 127/64 09/23/17 11:20 78 15 98 09/23/17 11:05 78 22 96 Physical Exam General Appearance: no apparent distress Eyes: normal inspection, PERRL ENT: hearing grossly normal Neck: supple Respiratory/Chest: lungs clear, no respiratory distress, no accessory muscle use Cardiovascular: regular rate, rhythm, + systolic murmur Abdomen: normal bowel sounds, non tender, soft Extremities: no pedal edema, no calf tenderness Neurologic/Psychiatric: alert, oriented x 3, + depressed affect Skin: normal color, warm/dry, no rash Assessment and Plan 87 y/o F Hx HTN, HPL, hypothyroidism, aortic stenosis. Pt states that approximately 10 days ago she was cleaning her floor, lost her balance and fell , suffering trauma to the R side of her forehead. She felt like the trauma was significant, although she denies LOC at the time. Since suffering the fall, she states she has been progressively weak, off balance and has lost her appetite. Family reports that she is currently unable to transfer without assistance and is therefore unable to manage independently. Initial workup in the ER included labs, echocardiogram and CT of the head. No acute abnormalities are noted. Generalized weakness: - Admitted to med/surg - CXR and head CT unremarkable for acute findings - UA clean- abnormal UA on 09/19 and started on Keflex- will continue Keflex 500 mg BID x3 more days - Consult PT/OT - ECHO- persevered EF, grade I diastolic dysfunction, no wall abnormalities Decreased appetite: - Start Megace 400 mg daily - Continue outpatient workup HTN, HLD- STABLE: Continue ASA, Lipitor, Norvasc Hypothyroidism- TSH WNL: Continue Synthroid Moderate aortic stenosis- STABLE: Continue outpatient f/u GI prophylaxis: Protonix daily DVT prophylaxis: TEDs/SCDs, ambulation Code status: LEVEL I, FULL Dispo: From home, lives w/ daughter- possible discharge tomorrow- PT/OT and CM consulted
[2017-09-24 14:56] VITALS: Ht 157.5 cm; Wt 60.0 kg
[2017-09-24 15:44] VITALS: BP 117/75; PULSE 78; TEMP 36.8; O2SAT 94
[2017-09-24 16:00] VITALS: O2SAT 94
[2017-09-24] MEDS: LOSARTAN POTASSIUM 25 MG TAB PO SCH (17:08)
[2017-09-24] MEDS: ATORVASTATIN 20 MG TAB PO SCH (20:07)
[2017-09-24] MEDS: CEPHALEXIN MONOHYDRATE 500 MG CAP PO SCH (20:07)
[2017-09-24 22:44] VITALS: BP 111/72; PULSE 81; TEMP 36.9; O2SAT 94
[2017-09-25] MEDS: LEVOTHYROXINE 50 MCG TAB PO SCH (06:06)
[2017-09-25 07:27] VITALS: BP_SYST 103; BP_SYST 114; BP_DIAS 68; BP_DIAS 71; BP_DIAS 72; PULSE 85; TEMP 36.7; O2SAT 95
[2017-09-25] MEDS: CHOLECALCIFEROL 1000 INTER.UNIT TAB PO SCH (07:30)
[2017-09-25] MEDS: BOOST VANILLA PO SCH ×3 (07:30→17:04)
[2017-09-25] MEDS: MEGESTROL ACETATE SUSP 400 MG/10 ML UDC PO SCH (07:31)
[2017-09-25] MEDS: PANTOprazole SOD 40 MG TAB PO SCH (07:31)
[2017-09-25] MEDS: ASPIRIN 81 MG CHEW PO SCH (07:31)
[2017-09-25] MEDS: CEPHALEXIN MONOHYDRATE 500 MG CAP PO SCH ×2 (07:32→20:20)
[2017-09-25] MEDS: AMLODIPINE BESYLATE 5 MG TAB PO SCH (07:32)
[2017-09-25 08:00] VITALS: O2SAT 97
--- NOTE | 2017-09-25 11:42 | Hospitalist Progress Note ---
Hospitalist Progress Note Date of Service September 25, 2017. Subjective Pt evaluation today including: conversation w/ patient, conversation w/ family (daughters and grandson ), physical exam, lab review, review of inpatient medication list Voiding: no voiding problems Patient resting in bed. +generalized weakness. Trying to eat as much as possible. Admits to feeling depressed. Patient denies any fever, chills, sweats, lightheadedness, dizziness, vision changes, CP, palpitations, edema, SOB, wheezing, cough, abdominal pain, nausea, vomiting, diarrhea, urinary symptoms, melena, numbness/tingling, muscle/joint pain, anxiety, active bleeding, or new skin discoloration/changes. Medications Current Inpatient Medications Medications (Trade) Dose Ordered Sig/Carmencita Route Start Time Stop Time Status Last Admin Dose Admin Acetaminophen (Tylenol Tab) 650 mg Q4H PRN PO 09/23/17 11:30 10/23/17 11:29 Al Hydrox/Mg Hydrox/Simethicone (Maalox Max Susp) 15 ml Q4H PRN PO 09/23/17 11:30 10/23/17 11:29 Magnesium Hydroxide (Milk Of Magnesia Susp) 30 ml Q6H PRN PO 09/23/17 11:30 10/23/17 11:29 Polyethylene (Miralax Powder Packet) 17 gm DAILY PRN PO 09/23/17 11:30 10/23/17 11:29 Ondansetron HCl (Zofran Inj) 4 mg Q6H PRN IV 09/23/17 11:30 10/23/17 11:29 Amlodipine Besylate (Norvasc Tab) 10 mg DAILY PO 09/24/17 08:00 10/24/17 08:59 09/25/17 07:32 10 MG Aspirin (Aspirin Chew) 81 mg DAILY PO 09/24/17 08:00 10/24/17 08:59 09/25/17 07:31 81 MG Levothyroxine Sodium (Synthroid Tab) 50 mcg DAILYBB PO 09/24/17 06:30 10/24/17 06:29 09/25/17 06:06 50 MCG Cholecalciferol (Vitamin D Tab) 1,000 inter.unit DAILY PO 09/24/17 08:00 10/24/17 08:59 09/25/17 07:30 1,000 INTER.UNIT Enteral Nutritional Formula (Boost) 1 can TIDM PO 09/23/17 17:00 10/23/17 16:59 09/25/17 07:30 1 CAN Sodium Chloride ([place] Nasal [place]) 1 sprays PRN PRN NA 09/23/17 15:30 10/23/17 15:29 Losartan Potassium (coZAAR TAB) 25 mg DAILY@1700 PO 09/23/17 17:00 10/23/17 16:59 09/24/17 17:08 25 MG Atorvastatin Calcium (Lipitor Tab) 20 mg DAILY@2100 PO 09/23/17 21:00 10/23/17 20:59 09/24/17 20:07 20 MG Megestrol Acetate (Megace Susp) 400 mg QAM PO 09/25/17 08:00 10/25/17 07:59 09/25/17 07:31 400 MG Cephalexin Monohydrate (Keflex Cap) 500 mg BID PO 09/24/17 20:00 09/27/17 19:59 09/25/17 07:32 500 MG Pantoprazole Sodium (Protonix Tab) 40 mg QAM PO 09/25/17 08:00 09/29/17 07:59 09/25/17 07:31 40 MG Mirtazapine (Remeron Tab) 7.5 mg HS PO 09/25/17 22:00 10/25/17 21:59 Objective Vital Signs Date Time Temp Pulse Resp B/P (MAP) Pulse Ox O2 Delivery O2 Flow Rate FiO2 09/25/17 08:00 97 Room Air 09/25/17 07:27 36.7 85 18 114/72 (86) 95 Room Air 114/71 (85) 103/68 (80) 09/25/17 00:00 Room Air 09/24/17 22:44 36.9 81 26 111/72 (85) 94 Room Air 09/24/17 16:00 94 Room Air 09/24/17 15:44 36.8 78 18 117/75 (89) 94 Room Air Physical Exam General Appearance: no apparent distress Eyes: normal inspection, PERRL ENT: hearing grossly normal Neck: supple Respiratory/Chest: lungs clear, no respiratory distress, no accessory muscle use Cardiovascular: regular rate, rhythm, + systolic murmur Abdomen: normal bowel sounds, non tender, soft Extremities: no pedal edema, no calf tenderness Neurologic/Psychiatric: no motor/sensory deficits, alert, oriented x 3, + depressed affect Skin: normal color, warm/dry, no rash Assessment and Plan 87 y/o F Hx HTN, HPL, hypothyroidism, aortic stenosis. Pt states that approximately 10 days ago she was cleaning her floor, lost her balance and fell , suffering trauma to the R side of her forehead. She felt like the trauma was significant, although she denies LOC at the time. Since suffering the fall, she states she has been progressively weak, off balance and has lost her appetite. Family reports that she is currently unable to transfer without assistance and is therefore unable to manage independently. Initial workup in the ER included labs, echocardiogram and CT of the head. No acute abnormalities are noted. Generalized weakness: - Admitted to med/surg - CXR and head CT unremarkable for acute findings - UA clean- abnormal UA on 09/19 and started on Keflex- will continue Keflex 500 mg BID x3 more days- treatment completed on 09/26 - Consult PT/OT - ECHO- persevered EF, grade I diastolic dysfunction, no wall abnormalities Decreased appetite, depression: - Start Megace 400 mg daily and Remeron 7.5 mg HS - Nutrition consulted- Boost TID - Continue outpatient workup HTN, HLD- STABLE: Continue ASA, Lipitor, Norvasc Hypothyroidism- TSH WNL: Continue Synthroid Moderate aortic stenosis- STABLE: Continue outpatient f/u GI prophylaxis: Protonix daily DVT prophylaxis: TEDs/SCDs, ambulation Code status: LEVEL I, FULL Dispo: From home, lives w/ daughter- possible discharge to home w/ [facility] tomorrow - PT/OT and CM consulted
[2017-09-25 15:28] VITALS: BP 102/62; PULSE 77; TEMP 36.8; O2SAT 95
[2017-09-25 17:02] VITALS: BP 122/76; PULSE 92
[2017-09-25] MEDS: LOSARTAN POTASSIUM 25 MG TAB PO SCH (17:04)
[2017-09-25] MEDS: ATORVASTATIN 20 MG TAB PO SCH (20:18)
[2017-09-25] MEDS ORDERED: MIRTAZAPINE TAB 15 MG TAB PO SCH (22:00)
[2017-09-25 23:48] VITALS: BP 97/63; PULSE 87; TEMP 36.6; O2SAT 96
[2017-09-26] MEDS: LEVOTHYROXINE 50 MCG TAB PO SCH (05:32)
[2017-09-26 07:39] VITALS: BP 99/60; PULSE 80; TEMP 36.8; O2SAT 96
[2017-09-26] MEDS: ASPIRIN 81 MG CHEW PO SCH (08:05)
[2017-09-26] MEDS: CEPHALEXIN MONOHYDRATE 500 MG CAP PO SCH (08:05)
[2017-09-26] MEDS: PANTOprazole SOD 40 MG TAB PO SCH (08:05)
[2017-09-26] MEDS: CHOLECALCIFEROL 1000 INTER.UNIT TAB PO SCH (08:05)
[2017-09-26] MEDS: MEGESTROL ACETATE SUSP 400 MG/10 ML UDC PO SCH (08:06)
[2017-09-26] MEDS: AMLODIPINE BESYLATE 5 MG TAB PO SCH (08:06)
[2017-09-26] MEDS: BOOST VANILLA PO SCH ×2 (08:10→11:59)
--- NOTE | 2017-09-26 10:20 | Hospitalist Progress Note ---
Hospitalist Progress Note Date of Service September 26, 2017. Subjective Pt evaluation today including: conversation w/ patient, physical exam, lab review, review of inpatient medication list Voiding: no voiding problems Patient resting in bed. +generalized weakness, fatigue, decreased appetite. +depressed mood. Patient/daughters decided rehab is the best option at this time. Patient denies any fever, chills, sweats, lightheadedness, dizziness, vision changes, CP, palpitations, edema, SOB, wheezing, cough, abdominal pain, nausea, vomiting, diarrhea, urinary symptoms, melena, numbness/tingling, muscle/joint pain, anxiety, active bleeding, or new skin discoloration/changes. Medications Current Inpatient Medications Medications (Trade) Dose Ordered Sig/Carmencita Route Start Time Stop Time Status Last Admin Dose Admin Acetaminophen (Tylenol Tab) 650 mg Q4H PRN PO 09/23/17 11:30 10/23/17 11:29 Al Hydrox/Mg Hydrox/Simethicone (Maalox Max Susp) 15 ml Q4H PRN PO 09/23/17 11:30 10/23/17 11:29 Magnesium Hydroxide (Milk Of Magnesia Susp) 30 ml Q6H PRN PO 09/23/17 11:30 10/23/17 11:29 Polyethylene (Miralax Powder Packet) 17 gm DAILY PRN PO 09/23/17 11:30 10/23/17 11:29 Ondansetron HCl (Zofran Inj) 4 mg Q6H PRN IV 09/23/17 11:30 10/23/17 11:29 Amlodipine Besylate (Norvasc Tab) 10 mg DAILY PO 09/24/17 08:00 10/24/17 08:59 09/26/17 08:06 10 MG Aspirin (Aspirin Chew) 81 mg DAILY PO 09/24/17 08:00 10/24/17 08:59 09/26/17 08:05 81 MG Levothyroxine Sodium (Synthroid Tab) 50 mcg DAILYBB PO 09/24/17 06:30 10/24/17 06:29 09/26/17 05:32 50 MCG Cholecalciferol (Vitamin D Tab) 1,000 inter.unit DAILY PO 09/24/17 08:00 10/24/17 08:59 09/26/17 08:05 1,000 INTER.UNIT Enteral Nutritional Formula (Boost) 1 can TIDM PO 09/23/17 17:00 10/23/17 16:59 09/26/17 08:10 1 CAN Sodium Chloride ([place] Nasal [place]) 1 sprays PRN PRN NA 09/23/17 15:30 10/23/17 15:29 Losartan Potassium (coZAAR TAB) 25 mg DAILY@1700 PO 09/23/17 17:00 10/23/17 16:59 09/25/17 17:04 25 MG Atorvastatin Calcium (Lipitor Tab) 20 mg DAILY@2100 PO 09/23/17 21:00 10/23/17 20:59 09/25/17 20:18 20 MG Megestrol Acetate (Megace Susp) 400 mg QAM PO 09/25/17 08:00 10/25/17 07:59 09/26/17 08:06 400 MG Cephalexin Monohydrate (Keflex Cap) 500 mg BID PO 09/24/17 20:00 09/27/17 19:59 09/26/17 08:05 500 MG Pantoprazole Sodium (Protonix Tab) 40 mg QAM PO 09/25/17 08:00 09/29/17 07:59 09/26/17 08:05 40 MG Mirtazapine (Remeron Tab) 7.5 mg HS PO 09/25/17 22:00 10/25/17 21:59 09/25/17 20:20 7.5 MG Objective Vital Signs Date Time Temp Pulse Resp B/P (MAP) Pulse Ox O2 Delivery O2 Flow Rate FiO2 09/26/17 08:00 Room Air 09/26/17 07:39 36.8 80 16 99/60 (73) 96 09/25/17 23:48 36.6 87 16 97/63 (74) 96 Room Air 09/25/17 23:25 Room Air 09/25/17 17:02 92 122/76 (91) 09/25/17 16:00 Room Air 09/25/17 15:28 36.8 77 18 102/62 (75) 95 Room Air Physical Exam General Appearance: no apparent distress Eyes: normal inspection, PERRL ENT: hearing grossly normal Neck: supple Respiratory/Chest: lungs clear, no respiratory distress, no accessory muscle use Cardiovascular: regular rate, rhythm, + systolic murmur Abdomen: normal bowel sounds, non tender, soft Extremities: no pedal edema, no calf tenderness Neurologic/Psychiatric: no motor/sensory deficits, alert, oriented x 3, + depressed affect Skin: normal color, warm/dry, no rash Assessment and Plan 87 y/o F Hx HTN, HPL, hypothyroidism, aortic stenosis. Pt states that approximately 10 days ago she was cleaning her floor, lost her balance and fell , suffering trauma to the R side of her forehead. She felt like the trauma was significant, although she denies LOC at the time. Since suffering the fall, she states she has been progressively weak, off balance and has lost her appetite. Family reports that she is currently unable to transfer without assistance and is therefore unable to manage independently. Initial workup in the ER included labs, echocardiogram and CT of the head. No acute abnormalities are noted. Generalized weakness, fatigue: - Admitted to med/surg - CXR and head CT unremarkable for acute findings - UA clean- abnormal UA on 09/19 and started on Keflex- will continue Keflex 500 mg BID x3 more days- treatment completed on 09/27 - TSH WNL; check Vitamin D, b12, and folate levels - Consult PT/OT - ECHO- persevered EF, grade I diastolic dysfunction, no wall abnormalities Decreased appetite, depression: - Started Megace 400 mg daily and Remeron 7.5 mg HS - Nutrition consulted- Boost TID - Continue outpatient workup HTN, HLD- STABLE: Continue ASA, Lipitor, Norvasc Hypothyroidism- TSH WNL: Continue Synthroid Moderate aortic stenosis- STABLE: Continue outpatient f/u GI prophylaxis: Protonix daily DVT prophylaxis: TEDs/SCDs, ambulation Code status: LEVEL I, FULL Dispo: From home, lives w/ daughter- now wants rehab placement- PT/OT and CM following
[2017-09-26] MEDS ORDERED: MGCUDL400 PO (14:21)
[2017-09-26] MEDS ORDERED: RMR15 PO (14:21)
[2017-09-26] MEDS ORDERED: Boost PO (14:21)
[2017-09-26] MEDS ORDERED: PRT40 PO (14:21)
[2017-09-26] MEDS ORDERED: CEPH-571 PO ×2 (14:22)
--- NOTE | 2017-09-26 14:25 | Discharge Instructions ---
Discharge Instructions Date of Service September 26, 2017. Admission Reason for Admission: Gait Abnormality,Generlized Weakness Discharge Discharge Diagnosis / Problem: Generalized weakness Discharge Goals Goal(s): Decrease discomfort, Improve function, Increase independence, Improve disease control, Improve nutritional status, Learn about illness, Diagnostic testing, Therapeutic intervention, Prevent Disease Progression Activity Recommendations Activity Limitations: resume your previous activity . Instructions / Follow-Up Instructions / Follow-Up New medications: Remeron 7.5 mg at night- this is to help with mood and appetite Megace 400 mg daily- this is to help with appetite Boost supplement TID Tomorrow will be your last day of Keflex for UTI treatment Resume all other regular home medications as prescribed FOLLOW-UPS: Please follow-up with your PCP within 5-7 days Please follow-up/keep all of your subspecialty appointments Current Hospital Diet Patient's current hospital diet: Regular Diet Discharge Diet Recommended Diet: Regular Diet Pending Studies Studies pending at discharge: no Medical Emergencies . Who to Call and When: Medical Emergencies: If at any time you feel your situation is an emergency, please call 911 immediately. . Non-Emergent Contact Non-Emergency issues call your: Primary Care Provider Call Non-Emergent contact if: you have any medication questions . . "Provider Documentation" section prepared by Demetrice Fuller. .
--- NOTE | 2017-09-26 14:30 | Discharge Summary ---
Discharge Summary Date of Service September 26, 2017. Discharge Summary Admission Date: September 23, 2017 at 11:28 Discharge Date: September 26, 2017 Discharge Disposition: Home with services Principal Diagnosis: Generalized weakness Problems/Secondary Diagnoses: Generalized weakness fatigue UTI POA grade I diastolic dysfunction Decreased appetite depression HTN HLD Hypothyroidism Moderate aortic stenosis Procedures: HEAD CT NONCONTRAST CT DOSE: 537.48 mGy.cm HISTORY: Pt c/o fall, weakness TECHNIQUE: Multiaxial CT images of the head were performed without the use of intravenous contrast. Automated exposure control was utilized for this study. A dose lowering technique was utilized adhering to the principles of ALARA. Comparison: Head CT 09/19/2017. Findings: Small retention cysts within the left maxillary sinus. The mastoid air cells are clear. The calvarium and skull base are intact. There is no mass, hematoma, midline shift, acute infarct. White matter hypodensity is nonspecific but suggestive of microvascular ischemic change. The ventricles and sulci demonstrate mild age-related involutional changes. Impression: No significant change compared to the prior study. No acute intracranial abnormality. Electronically signed by: Addi Genao M.D. 09/23/2017 10:38 AM Dictated Date/Time: 09/23/2017 10:33 AM The status of this report is Signed. Draft = Not yet reviewed or approved by Radiologist. Signed = Reviewed and approved by Radiologist CHEST ONE VIEW PORTABLE CLINICAL HISTORY: 87 years-old Female presenting with Pt c/o weakness. TECHNIQUE: Portable upright AP view of the chest was obtained. COMPARISON: 09/19/2017. FINDINGS: Atherosclerosis of aortic arch. Cardiac silhouette mildly enlarged. No focal opacity. No large effusion or pneumothorax. Osseous structures normal. Upper abdomen normal. IMPRESSION: 1. Mild cardiomegaly. No other convincing evidence of acute cardiopulmonary disease. Electronically signed by: Sreekanth Mendoza M.D. 09/23/2017 9:45 AM Dictated Date/Time: 09/23/2017 9:44 AM The status of this report is Signed. Draft = Not yet reviewed or approved by Radiologist. Signed = Reviewed and approved by Radiologist Interpretation Summary * Name: ANJELICA ROMANO Study Date: 09/23/2017 09:50 AM BP: 121/56 mmHg * Patient Location: C.EDB HR: 81 * : 1930 (M/d/yyyy) Gender: Female Height: 62 in * Age: 87 yrs Ethnicity: [place] Weight: 132 lb * Ordering Physician: Jamar Harrison * Referring Physician: Self, Referred * Performed By: Carmencita Wray RDCS * * Reason For Study: MURMURS * BSA: 1.6 m2 * -- Conclusions -- * There is mild concentric left ventricular hypertrophy. * Left ventricular systolic function is normal. * Grade I diastolic dysfunction, (abnormal relaxation pattern). * Moderate valvular aortic stenosis. * There is mild mitral annular calcification. * There is mild mitral regurgitation. * Compared to an echocardiogram from 12/21/2014, there has been minimal change. Procedure Details * A complete two-dimensional transthoracic echocardiogram was performed (2D, M-mode, Doppler and color flow Doppler). Left Ventricle * The left ventricle is normal in size. * There is mild concentric left ventricular hypertrophy. * Left ventricular systolic function is normal. * Ejection Fraction = 55-60%. * Grade I diastolic dysfunction, (abnormal relaxation pattern). * The left ventricular wall motion is normal. Right Ventricle * The right ventricle is normal in size and function. * The right ventricular systolic function is normal as assessed by tricuspid annular plane systolic excursion (TAPSE) (normal >1.5 cm). Atria * The left atrial size is normal. * Right atrial size is normal. Mitral Valve * There is mild mitral annular calcification. * There is mild mitral regurgitation. Tricuspid Valve * The tricuspid valve is not well visualized, but is grossly normal. * Significant tricuspid regurgitation is absent. Aortic Valve * Moderate valvular aortic stenosis. * There is no significant aortic regurgitation. Pulmonic Valve * The pulmonic valve is not well visualized. Pericardium/Pleural * There is no pericardial effusion. Medication Reconciliation New Medications: Megestrol Acetate (Megestrol Acetate) 400 Mg/10 Ml Susp 400 MG PO QAM for 40 Days, #40 DOSE Mirtazapine (Mirtazapine) 15 Mg Tab 7.5 MG PO HS for 30 Days, #15 TAB [Boost] () 1 CAN LIQD 1 CAN PO TIDM for 30 Days Changed Medications: Cephalexin (Keflex) 500 Mg Cap 1 CAP PO BID for 7 Days, #21 CAP (Changed from: TID) last day of treatment in tomorrow Continued Medications: Amlodipine (Norvasc) 10 Mg Tab 10 MG PO DAILY, TAB Aspirin (Aspirin Chewable) 81 Mg Chew 81 MG PO DAILY Atorvastatin (Lipitor) 20 Mg Tab 20 MG PO DAILY Cholecalciferol (D 1000) 1,000 Unit Cap 1000 UNITS PO DAILY Levothyroxine Sodium (Synthroid) 50 Mcg Tab 50 MCG PO DAILY, TAB Losartan Potassium (Cozaar) 25 Mg Tab 25 MG PO DAILY, TAB Referrals At Discharge Follow up Referrals: Family Practice Referral - Within 1 Week with Sahil Ceron M.D. Discharge Exam Review of Systems: Constitutional: + weakness, + fatigue, No fever, No chills, No sweats Eyes: No worsening of vision ENT: No hearing loss Respiratory: No cough, No shortness of breath, No hemoptysis Cardiovascular: No chest pain, No edema, No palpitations Abdomen: No pain, No nausea, No vomiting, No diarrhea, No constipation, No GI bleeding Musculoskeletal: No joint pain, No muscle pain, No calf pain Genitourinary - Female: No dysuria, No hematuria Neurologic: + weakness, No numbness/tingling Psychiatric: + depression symptoms, No anxiety Endocrine: + fatigue Hematologic / Lymphatic: No abnormal bleeding/bruising Integumentary: No rash, No itch, No new/changing skin lesions Physical Exam: General Appearance: no apparent distress Eyes: normal inspection, PERRL ENT: hearing grossly normal Neck: supple Respiratory/Chest: lungs clear, no respiratory distress, no accessory muscle use Cardiovascular: regular rate, rhythm, + systolic murmur Abdomen / GI: normal bowel sounds, non tender, soft Extremities: no calf tenderness, no pedal edema Neurologic/Psychiatric: alert, oriented x 3, + depressed affect Skin: normal color, warm/dry, no rash Hospital Course 87 y/o F Hx HTN, HPL, hypothyroidism, aortic stenosis. Pt states that approximately 10 days ago she was cleaning her floor, lost her balance and fell , suffering trauma to the R side of her forehead. She felt like the trauma was significant, although she denies LOC at the time. Since suffering the fall, she states she has been progressively weak, off balance and has lost her appetite. Family reports that she is currently unable to transfer without assistance and is therefore unable to manage independently. Initial workup in the ER included labs, echocardiogram and CT of the head. No acute abnormalities are noted. Generalized weakness, fatigue: - Admitted to med/surg - CXR and head CT unremarkable for acute findings - UA clean- abnormal UA on 09/19 and started on Keflex- will continue Keflex 500 mg BID x3 more days- treatment completed on 09/27 - TSH, Vitamin D, b12, and folate levels WNL - Consult PT/OT- recommend return home w/ family/[facility] - ECHO- persevered EF, grade I diastolic dysfunction, no wall abnormalities Decreased appetite, depression: - Started Megace 400 mg daily and Remeron 7.5 mg HS - Nutrition consulted- Boost TID - Continue outpatient workup HTN, HLD- STABLE: Continue ASA, Lipitor, Norvasc Hypothyroidism- TSH WNL: Continue Synthroid Moderate aortic stenosis- STABLE: Continue outpatient f/u GI prophylaxis: Protonix daily DVT prophylaxis: TEDs/SCDs, ambulation Code status: LEVEL I, FULL Dispo: Discharge to home w/ HHS Total Time Spent: Greater than 30 minutes This includes examination of the patient, discharge planning, medication reconciliation, and communication with other providers. Discharge Instructions Please refer to the electronic Patient Visit Report (Discharge Instructions) for additional information. Follow-Up Please follow-up with your PCP within 5-7 days Please follow-up/keep all of your subspecialty appointments Additional Copies To Sahil Ceron M.D.
[2017-09-26 14:56] VITALS: BP 99/60; PULSE 80; TEMP 36.8; O2SAT 96
[2017-09-26] MEDS: LOSARTAN POTASSIUM 25 MG TAB PO SCH (15:26)
[2017-09-26 15:53] VITALS: BP 112/72; PULSE 73; TEMP 36.7; O2SAT 95
== END 2017-09-26 15:55 | disposition home or self-care (01) ==
LOC: C.EDB 08:27 → C.MS4W 11:28 → ENRESERV 11:42
PROVIDERS: ADMIT Internal Medicine; ATTEND Hospitalist
DX: R53.1 Weakness (principal); R53.83 Other fatigue; N39.0 Urinary tract infection, site not specified; R63.0 Anorexia; F32.9 Major depressive disorder, single episode, unspecified; I10 Essential (primary) hypertension; E78.5 Hyperlipidemia, unspecified; E03.9 Hypothyroidism, unspecified; I35.0 Nonrheumatic aortic (valve) stenosis; Z79.82 Long term (current) use of aspirin; Z79.899 Other long term (current) drug therapy; Z91.81 History of falling; Z87.891 Personal history of nicotine dependence

== ENCOUNTER → 2017-12-12 | Outpatient (CLI) | payer MEDICARE ==
[~2017-12-12] MED LIST changes: -AMLO-114 PO; +AMLO10TA3 PO; -ATOR10TA82 PO; +Boost PO; +CEPH-571 PO; -CEPH500C2 PO; -CHOL100010 PO; +CHOL100041 PO; +GADAVIST IV PRN; -LEVO25TA PO; +LEVO50TA PO; +LPT20 PO; +MGCUDL400 PO; -PSYL0.524 PO; +RMR15 PO
--- NOTE | 2017-12-12 10:07 | DIAGNOSTIC IMAGING REPORT ---
BRAIN COMBO HISTORY: 87 years-old Female R43.2 Abnormal sense of [id number] acute fatigue with recent head injury. Patient also reports abnormal taste sensation. COMPARISON: CT head 09/19/2017, brain MRI 09/11/2012 TECHNIQUE: Multiplanar multisequence MRI of the brain was obtained both with and without the use of 6 mL Gadavist FINDINGS: The large [id number] product support manager localizer images demonstrate no gross abnormality. There is no restricted diffusion to suggest acute or subacute infarct. The midline structures including the corpus callosum, optic chiasm, pituitary and pineal glands appear unremarkable on the sagittal T1 series. No cerebellar tonsillar herniation. Degenerative changes about the imaged cervical spine. There is no pathologic blooming artifact on the T2 star series. There is no acute intracranial hemorrhage, midline shift, abnormal extra-axial collections, hydrocephalus or intracranial mass. There is moderate brain atrophy. Moderate degree of patchy T2/FLAIR prolongation about the subcortical and periventricular white matter suggests chronic microvascular ischemic changes. Major flow voids appear patent. The orbits and soft tissues appear unremarkable. Small right mastoid effusion. Mild mucosal thickening of the ethmoid and sphenoid sinuses. Leftward bowing and spurring of the nasal septum. There is no abnormal intra-axial or extra-axial enhancement identified. IMPRESSION: 1. No acute intracranial abnormality. 2. No acute infarction or abnormal enhancement. 3. Additional findings as above. The above report was generated using voice recognition software. It may contain grammatical, syntax or spelling errors. Electronically signed by: Mor Rain M.D. 12/12/2017 10:06 AM Dictated Date/Time: 12/12/2017 9:59 AM
== END | disposition home or self-care (01) ==
LOC: C.MRI 08:47
PROVIDERS: ATTEND Physician Assistant Medical
DX: R43.2 Parageusia (principal)

== ENCOUNTER 2020-02-13 18:35 | Observation (INO) ==
--- NOTE | 2020-02-13 18:47 | CT Scan Report ---
CT OF THE HEAD WITHOUT CONTRAST CLINICAL HISTORY: Stroke Alert COMPARISON STUDY: MRI of the brain December 12, 2017. Head CT December 05, 2019. CT DOSE: 537.48 mGy.cm TECHNIQUE: Helical axial images of the head were obtained without IV contrast. Automated exposure con trol was utilized for the study. A dose lowering technique was utilized adhering to the principles o f ALARA. FINDINGS: No acute intracranial hemorrhage, midline shift or mass effect is present. White matter hyp odensities are unchanged and suggest small vessel disease. The ventricular system is unremarkable. Th e basilar cisterns are patent. No extra-axial collections are present. There are no findings to sugge st acute dural sinus thrombosis or acute territorial infarct. No significant calvarial abnormalities are present. Visualized portions of the sinuses and mastoid air cells are clear. IMPRESSION: No acute intracranial findings. No change in appearance of the brain. ACT 112: Negative or not required by law. Electronically signed by: Bright Abel M.D. 02/13/2020 6:45 PM
--- NOTE | 2020-02-13 18:56 | Emergency Department Note ---
History of Present Illness General Chief complaint: TIA Symptoms Time Seen by Provider: 02/13/20 18:48 Source: patient, EMS and RN notes reviewed Mode of arrival: EMS Limitations: no limitations History of Present Illness This patient is brought in by EMS after having strokelike symptoms. She was feeling normal today until around 1740 when she had some expressive aphasia and slurred speech that lasted off and on for about 10 or 15 minutes. By the time the paramedics got there it had resolved and she had no recurrence. She also has some vague chest heaviness which also has resolved. She says it was not pain. No nausea or vomiting. no back pain. At present she says she feels fine like she could go home. She denies any headache. Denies any trouble with vision at present. No focal numbness or weakness. No abdominal pain. She is on no blood thinners besides aspirin. No fever or chills or flulike symptoms or exposure to coronavirus known. Home Medications Home Medications Medication Instructions Recorded Confirmed Type aspirin 81 mg tablet,delayed 81 mg PO DAILY tab 10/21/18 02/13/20 History release cholecalciferol (vitamin D3) 50 4,000 units PO DAILY cap 03/28/19 02/13/20 History mcg (2,000 unit) capsule atorvastatin 20 mg tablet 20 mg PO HS #90 tab 05/17/19 02/13/20 Rx levothyroxine 50 mcg capsule 50 mcg PO DAILY #90 cap 10/25/19 02/13/20 Rx losartan 12.5 mg PO HS 12/05/19 02/13/20 History Allergies Allergy/AdvReac Type Severity Reaction Status Date / Time Iodinated Contrast Media Allergy Severe ANAPHYLAXIS Verified 02/13/20 20:02 Past Med/Surg History Medical History Aortic stenosis Colon cancer Graves disease Hyperlipidemia Hypertension Hypothyroidism Surgical History Cancer [id number] YRS AGO History of appendectomy History of colonoscopy X MULTIPLE History of tonsillectomy Family History Father Colorectal cancer Mother Cancer Brother Laryngeal cancer Sister Dementia Social History Smoking Status: Never smoker Second Hand Exposure: No; Hx Alcohol Use: No Hx Substance Use: No Preferred Language: Ivorian Communication Ability: Effective Chief Credit Officer Required: No Beliefs That Will Affect Care: None Current Living Situation: Family Feels Safe at Home: Yes Safety Concerns: Feels Safe At This Time Assistive Devices: Glasses Review of Systems A total of 10 systems reviewed and were otherwise negative Physical Exam Vital Signs Vital Signs - 24 hr 02/13/20 18:38 02/13/20 18:56 02/13/20 19:15 Temperature 36.7 C Temperature Source Oral Pulse Rate 77 75 88 Pulse Rate from SpO2 Sensor 88 Pulse Rhythm Regular Regular Pulse Strength Normal Respiratory Rate 25 H 16 20 Respiratory Effort / Characteristics Non-Labored Respiratory Depth Normal Respiratory Pattern Regular Blood Pressure 175/88 H 173/74 H Blood Pressure Mean 117 101 Blood Pressure Position Lying Pulse Oximetry 95 94 95 Oxygen Delivery Method Room Air Room Air Room Air Sepsis Recent Fever Within 48 Hours No Sepsis New/Unexplained Change in Mental Status N/A Sepsis Action Taken by Nursing No Action Required 02/13/20 19:31 02/13/20 19:46 02/13/20 20:00 Temperature Temperature Source Pulse Rate 79 81 72 Pulse Rate from SpO2 Sensor 78 82 72 Pulse Rhythm Pulse Strength Respiratory Rate 20 20 20 Respiratory Effort / Characteristics Respiratory Depth Respiratory Pattern Blood Pressure 182/73 H 157/79 H 176/70 H Blood Pressure Mean 110 116 104 Blood Pressure Position Pulse Oximetry 95 95 95 Oxygen Delivery Method Room Air Room Air Room Air Sepsis Recent Fever Within 48 Hours Sepsis New/Unexplained Change in Mental Status Sepsis Action Taken by Nursing 02/13/20 20:15 02/13/20 20:30 02/13/20 20:45 Temperature Temperature Source Pulse Rate 72 71 66 Pulse Rate from SpO2 Sensor 73 71 67 Pulse Rhythm Pulse Strength Respiratory Rate 20 20 20 Respiratory Effort / Characteristics Respiratory Depth Respiratory Pattern Blood Pressure 172/79 H 170/82 H 172/78 H Blood Pressure Mean 99 112 103 Blood Pressure Position Pulse Oximetry 93 94 94 Oxygen Delivery Method Room Air Room Air Room Air Sepsis Recent Fever Within 48 Hours Sepsis New/Unexplained Change in Mental Status Sepsis Action Taken by Nursing 02/13/20 21:00 02/13/20 21:15 Temperature Temperature Source Pulse Rate 66 67 Pulse Rate from SpO2 Sensor 67 67 Pulse Rhythm Pulse Strength Respiratory Rate 20 20 Respiratory Effort / Characteristics Respiratory Depth Respiratory Pattern Blood Pressure 175/79 H 166/73 H Blood Pressure Mean 103 95 Blood Pressure Position Pulse Oximetry 94 95 Oxygen Delivery Method Room Air Room Air Sepsis Recent Fever Within 48 Hours Sepsis New/Unexplained Change in Mental Status Sepsis Action Taken by Nursing General: Well developed well nourished older female who is alert and oriented x3 and in no acute distress, breathing comfortably on room air. Normal speech HEENT: Normal cephalic atraumatic. Pupils are equal round and reactive to light. Extraocular movements are intact. Oropharynx is pink with moist mucous membranes. No swelling of the mouth lips or tongue. Neck: Supple with a midline trachea. No meningeal signs or stiffness, no JVD or bruits. No Stridor. Chest: Clear to auscultation bilaterally. No wheezes or rhonchi. No increased work of breathing. Heart: Regular rate and rhythm without murmurs or gallops. Abdomen: Soft nontender, nondistended without rebound guarding or rigidity. Extremities: No cyanosis clubbing or edema. No calf tenderness or assymetry Spine/Back. Non tender to palpation. No CVA tenderness Skin: Good turgor without rashes. Neurologic exam: Cranial nerves two through 12 are intact. Motor and sensation are intact and symmetrical throughout. No tremor Course Administered Medications Discontinued Medications Aspirin (Aspirin 81 Mg Chew) 324 mg PO NOW STA Stop: 02/13/20 20:01 Last Admin: 02/13/20 20:07 Dose: 324 mg Documented by: [id number] Medical Decision Making Differential Diagnosis TIA, CVA, cardiac disease, electrolyte or metabolic abnormality, aortic pathology Medical Records Attestation: I reviewed the patient's medical records. Home Medications Current Medication List: was personally reviewed by me Laboratory Data Attestation: I reviewed the patient's lab results. Result diagrams: 02/13/20 18:38 02/13/20 18:38 Lab Results 02/13/20 02/13/20 02/13/20 Range/Units 18:38 18:38 18:38 WBC 5.38 (4.8-10.8) K/uL RBC 4.37 (4.2-5.4) M/uL Hgb 13.4 (12.0-16.0) g/dL POC Hgb (12.0-16.0) g/dl Hct 40.5 (37-47) % POC Hct (37-47) % MCV 92.7 (80-100) fL MCH 30.7 (25-34) pg MCHC 33.1 (32-36) g/dL RDW Std Deviation 46.1 (36.4-46.3) fL RDW Coeff of Alphonse 13.5 (11.5-14.5) % Plt Count 271 (130-400) K/uL MPV 9.3 (7.4-10.4) fL PT 10.4 (9.0-12.0) Seconds INR 1.0 (0.9-1.1) APTT 26.2 (21.0-31.0) Seconds PTT Ratio 0.9 POC Sodium (135-144) mmol/L Sodium 137 (136-145) mmol/L POC Potassium (3.3-5.0) mmol/L Potassium 3.7 (3.5-5.1) mmol/L POC Chloride (101-112) mmol/L Chloride 103 (98-107) mmol/L Carbon Dioxide 26 (21-32) mmol/L POC Total CO2 (24-31) mmol/L Anion Gap 8.0 (3-11) POC Anion Gap (16-25) mmol/L POC BUN (7-18) mg/dl BUN 10 (7-18) mg/dl Creatinine 0.72 (0.6-1.2) mg/dl POC Creatinine (0.6-1.3) mg/dl Est Cr Clr Drug Dosing 48.7 ml/min Est GFR ( Amer) 86.1 Est GFR (Non-Af Amer) 74.3 BUN/Creatinine Ratio 13.8 (10-20) Glucose 123 H (70-99) mg/dl POC Glucose (70-99) mg/dl POC Glucose (other) (70-99) mg/dl Calcium 9.4 (8.5-10.1) mg/dl POC Ioniz Calcium Sary (1.12-1.32) mmol/l Magnesium 1.9 (1.8-2.4) mg/dl Total Bilirubin 0.3 (0.2-1) mg/dl AST 15 (15-37) U/L ALT 21 (12-78) U/L Alkaline Phosphatase 77 (45-117) U/L Troponin I < 0.015 (0-0.045) ng/ml Total Protein 7.0 (6.4-8.2) gm/dl Albumin 3.4 (3.4-5.0) gm/dl Globulin 3.6 (2.5-4.0) gm/dl Albumin/Globulin Ratio 0.9 (0.9-2) 02/13/20 02/13/20 Range/Units 18:53 19:11 WBC (4.8-10.8) K/uL RBC (4.2-5.4) M/uL Hgb (12.0-16.0) g/dL POC Hgb 13.6 (12.0-16.0) g/dl Hct (37-47) % POC Hct 40 (37-47) % MCV (80-100) fL MCH (25-34) pg MCHC (32-36) g/dL RDW Std Deviation (36.4-46.3) fL RDW Coeff of Alphonse (11.5-14.5) % Plt Count (130-400) K/uL MPV (7.4-10.4) fL PT (9.0-12.0) Seconds INR (0.9-1.1) APTT (21.0-31.0) Seconds PTT Ratio POC Sodium 136 (135-144) mmol/L Sodium (136-145) mmol/L POC Potassium 3.7 (3.3-5.0) mmol/L Potassium (3.5-5.1) mmol/L POC Chloride 99 L (101-112) mmol/L Chloride (98-107) mmol/L Carbon Dioxide (21-32) mmol/L POC Total CO2 23 L (24-31) mmol/L Anion Gap (3-11) POC Anion Gap 20.0 (16-25) mmol/L POC BUN 9 (7-18) mg/dl BUN (7-18) mg/dl Creatinine (0.6-1.2) mg/dl POC Creatinine 0.7 (0.6-1.3) mg/dl Est Cr Clr Drug Dosing ml/min Est GFR ( Amer) Est GFR (Non-Af Amer) BUN/Creatinine Ratio (10-20) Glucose (70-99) mg/dl POC Glucose 127 H (70-99) mg/dl POC Glucose (other) 123 H (70-99) mg/dl Calcium (8.5-10.1) mg/dl POC Ioniz Calcium Sary 1.21 (1.12-1.32) mmol/l Magnesium (1.8-2.4) mg/dl Total Bilirubin (0.2-1) mg/dl AST (15-37) U/L ALT (12-78) U/L Alkaline Phosphatase (45-117) U/L Troponin I (0-0.045) ng/ml Total Protein (6.4-8.2) gm/dl Albumin (3.4-5.0) gm/dl Globulin (2.5-4.0) gm/dl Albumin/Globulin Ratio (0.9-2) Imaging Data My Impression: Chest x-ray: No acute infiltrate, failure, pneumothorax seen. Normal-appearing aortic knob Radiologist's Impression: XR chest 1V portable CLINICAL HISTORY: stroke alert COMPARISON STUDY: Chest radiograph December 05, 2019. FINDINGS: Lung volumes are normal. Minimal lingular opacity favors atelectasis or scarring. There is no pneumothorax or pleural effusion. Cardiac size is stable. Mediastinal contours are normal. There is no evidence for pulmonary edema. Several old left rib fractures are noted. IMPRESSION: No acute cardiopulmonary findings. ECG Data Attestation: I personally reviewed and interpreted this ECG as follows: Indication: + chest pain Rate (beats per minute): 79 Rhythm: + normal sinus ECG Intervals/blocks: + Left bundle branch block, + Normal QT and + Normal VT ECG [place]: + Normal ECG ST segments: + Normal ST segments ECG Findings: no PACs and no PVCs Comparison ECG Date: from (12/05/19) Change: no significant change Blood Pressure Blood Pressure Findings: Elevated blood pressure Blood Pressure Disposition: elevated BP felt to be situational MDM Narrative This patient was brought in by EMS and placed in room B1. Due to the fact that she was having strokelike symptoms they took her straight over to CAT scan. They did not call a stroke alert prior to arriving as she did not have any symptoms but based on her symptoms coming and going I felt that we needed a stroke alert her. She also has had some vague chest pressure but that resolved as well and she has a normal EKG. Upon my initial evaluation she has a normal neurologic exam is asymptomatic. CAT scan of her head is unremarkable. EKG does not show any ischemic changes. Her troponin is negative she has no acute electrolyte or metabolic abnormalities. I did consider doing a CTA of the head neck and chest but the patient has a severe dye allergy where she gets anaphylaxis. At this time she is asymptomatic. Her chest x-ray is unremarkable and shows a normal aortic knob. I do not think is likely aortic pathology or vascular pathology. I do think she likely had a TIA she was given aspirin 324 mg chewable and I have consulted the hospitalist to see in the ER for admission/observation Continuous cardiac monitoring: An order was placed for continuous cardiac monitoring. She was noted to be in normal sinus rhythm with a rate of 85 Impression & Plan TIA (transient ischemic attack), Aphasia, Chest pain Discharge Plan Visit Data Chief Complaint: TIA Symptoms ED Provider: Javi Christine Discharge Problem: TIA (transient ischemic attack), Aphasia, Chest pain Patient Disposition: Admitted As Inpatient Discharge Problem: Chest pain Qualifiers: Chest pain type: unspecified Qualified Code(s): R07.9 - Chest pain, unspecified
[2020-02-13 19:11] LABS: Hematocrit (blood only) 40.5 % (37-47); Hemoglobin 13.4 g/dL (12.0-16.0); Mean Corpuscular Hemoglobin 30.7 pg (25-34); Mean Corpuscular Hgb Conc 33.1 g/dL (32-36); Mean Corpuscular Volume 92.7 fL (80-100); Mean Platelet Volume 9.3 fL (7.4-10.4); Platelet Count 271 K/uL (130-400); RDW Coefficient of Variation 13.5 % (11.5-14.5); RDW Standard Deviation 46.1 fL (36.4-46.3); Red Blood Count 4.37 M/uL (4.2-5.4); White Blood Count 5.38 K/uL (4.8-10.8)
[2020-02-13 19:22] LABS: Partial Thromboplastin Ratio 0.9; Partial Thromboplastin Time 26.2 Seconds (21.0-31.0); Prothrombin Time 10.4 Seconds (9.0-12.0)
[2020-02-13 19:24] LABS: iSTAT Creatinine 0.7 mg/dl (0.6-1.3); iSTAT Hemoglobin 13.6 g/dl (12.0-16.0); iSTAT Ionized Calcium 1.21 mmol/l (1.12-1.32); iSTAT Potassium 3.7 mmol/L (3.3-5.0)
[2020-02-13 19:29] LABS: Alanine Aminotransferase 21 U/L (12-78); Albumin Level 3.4 gm/dl (3.4-5.0); Aspartate Aminotransferase 15 U/L (15-37); BUN Creatinine Ratio 13.8 (10-20); Blood Urea Nitrogen 10 mg/dl (7-18); Calcium 9.4 mg/dl (8.5-10.1); Carbon Dioxide 26 mmol/L (21-32); Chloride 103 mmol/L (98-107); Creatinine Clr Calc Pharmacy 48.7 ml/min; Est GFR (African American) 86.1; Est GFR (Non-African American) 74.3; Glucose 123 mg/dl (70-99); Magnesium 1.9 mg/dl (1.8-2.4); Potassium 3.7 mmol/L (3.5-5.1); Sodium 137 mmol/L (136-145)
[2020-02-13 19:33] LABS: Albumin Globulin Ratio 0.9 (0.9-2); Alkaline Phosphatase 77 U/L (45-117); Bilirubin,Total 0.3 mg/dl (0.2-1); Globulin 3.6 gm/dl (2.5-4.0); Troponin I < 0.015 ng/ml (0-0.045)
[2020-02-13] MEDS ORDERED: ASPIRIN 81 MG CHEW PO STA (20:00)
--- NOTE | 2020-02-13 20:03 | XRay Report ---
XR chest 1V portable CLINICAL HISTORY: stroke alert COMPARISON STUDY: Chest radiograph December 05, 2019. FINDINGS: Lung volumes are normal. Minimal lingular opacity favors atelectasis or scarring. There is no pneumothorax or pleural effusion. Cardiac size is stable. Mediastinal contours are normal. There i s no evidence for pulmonary edema. Several old left rib fractures are noted. IMPRESSION: No acute cardiopulmonary findings. ACT 112: Negative or not required by law. Electronically signed by: Bright Abel M.D. 02/13/2020 8:01 PM
--- NOTE | 2020-02-13 20:53 | History & Physical Report ---
Date of Service February 13, 2020 Assessment & Plan (1) TIA (transient ischemic attack): 89-year-old female with past medical history hyperlipidemia, hypertension, hypothyroidism, vitamin D deficiency presents with concerns of expressive aphasia/slurred speech and chest pressure, both of which have since resolved. CVA Head CT: No acute intracranial findings. No change in appearance of the brain MRA head/neck w/wo contrast and MRI Brain w/wo contrast pending (Noted that pt has allergy to contrast so cannot obtain CTA head/neck) Echo pending. Previous from September 2017 reviewed: Mild concentric LVH. EF 55- 60%. Grade 1 diastolic dysfunction. Moderate valvular aortic stenosis. Mild mitral regurgitation. NIHSS every shift Medication management with atorvastatin 40 mg (increased from 20 mg), ASA 81 mg daily. Additionally will add on Plavix 75 mg for 21 days Lipid panel from January 2020 reviewed. A1c in a.m. Fall/aspiration precautions PT/OT eval is pending. Deferring SLC eval as patient passed bedside swallow Appreciate neurology consult Chest pressure Admit to med telemetry EKG on arrival shows normal sinus rhythm, left bundle branch block. No acute ischemic changes noted. Troponin admission negative, will trend x2 every 6 hours Morphine and nitroglycerin ordered PRN chest pain Defer cardiology consult at present Echo ordered as above As above, A1c in a.m. Lipid panel from January 2020 reviewed Patient aspirin initiated in ED. Continue with atorvastatin, aspirin as above HTN/HLD Hold losartan 12.5 mg to allow for permissive hypertension. Increase atorvastatin to 40 mg as above Hypothyroidism TSH from January 2020 2.29 WNL Continue levothyroxine 50 mcg FEN/GI: Heart healthy diet DVT prophylaxis: Chemoprophylaxis deferred. SCDs DNR/DNI Dispo: Med telemetry History of Present Illness Chief Complaint: TIA Primary Care Provider: Sahil Ceron MD 89-year-old female with past medical history hyperlipidemia, hypertension, hypothyroidism, vitamin D deficiency presents via EMS with concerns of strokelike symptoms. Around 5:30 PM this evening patient noticed that she is having signs of expressive aphasia, slurred speech that was additionally noted by daughter. Patient notes that the symptoms came and went roughly 3 times over a 30-minute period. Associated right-sided facial droop, per daughter. Patient also notes that she felt weakness in her legs bilaterally. By the time EMS had arrived patient notes that all symptoms had resolved. Patient is on 81 mg aspirin daily, but no other blood thinners. Patient additionally notes complaints of chest pressure that was constant, nonradiating, 2 out of 10 severity around the same time. No known alleviating or exacerbating factors. Regarding the strokelike symptoms and chest pressure, patient has never had anyt edvin similar to this in the past ever before. Patient otherwise denies any fevers, chills, sweats, nausea, vomiting, diarrhea, shortness of breath, palpitations, edema, syncope or near syncope, edith pain, urinary symptoms, headache, impaired swallowing, change in vision, known sick contacts or recent travel anywhere. Patient no other acute concerns or complaints. At present patient states that she feels fine and could go home. Pertinent labs: Unremarkable CBC, CMP. Initial Trop negative EKG: Normal sinus rhythm, left bundle branch block. No acute ischemic changes noted. Chest x-ray: No acute cardiopulmonary findings Head CT: No acute intracranial findings. No change in appearance of the brain ER course: P.o. aspirin 324 mg Social history: Patient denies any tobacco, alcohol, illicit drug use. Allergies Allergy/AdvReac Type Severity Reaction Status Date / Time Iodinated Contrast Media Allergy Severe ANAPHYLAXIS Verified 02/13/20 20:02 Home Medications Home Medications Medication Instructions Recorded Confirmed Type aspirin 81 mg tablet,delayed 81 mg PO DAILY tab 10/21/18 02/13/20 History release cholecalciferol (vitamin D3) 50 4,000 units PO DAILY cap 03/28/19 02/13/20 History mcg (2,000 unit) capsule atorvastatin 20 mg tablet 20 mg PO HS #90 tab 05/17/19 02/13/20 Rx levothyroxine 50 mcg capsule 50 mcg PO DAILY #90 cap 10/25/19 02/13/20 Rx losartan 12.5 mg PO HS 12/05/19 02/13/20 History Past Med/Surg History Medical History Aortic stenosis Colon cancer Graves disease Hyperlipidemia Hypertension Hypothyroidism Surgical History Cancer [id number] YRS AGO History of appendectomy History of colonoscopy X MULTIPLE History of tonsillectomy Family History Father Colorectal cancer Mother Cancer Brother Laryngeal cancer Sister Dementia Social History Smoking Status: Never smoker Second Hand Exposure: No; Hx Alcohol Use: No Hx Substance Use: No Preferred Language: Yi Communication Ability: Effective Ecological Technical Officer Required: No Beliefs That Will Affect Care: None Current Living Situation: Family Feels Safe at Home: Yes Safety Concerns: Feels Safe At This Time Assistive Devices: Glasses Review of Systems Review of Systems: All systems reviewed & are unremarkable except as noted in HPI & below Physical Exam Constitutional: WD/WN, vitals as above Eyes: PERRL, conjunctivae normal, anicteric sclerae ENMT: external ear and nose normal, oropharynx normal Respiratory: normal respiratory effort, lungs clear to auscultation Cardiovascular: RRR, no murmur, no edema Gastrointestinal (Abdomen): normal bowel sounds, soft, nontender, no hepatosplenomegaly Skin: no rashes, warm and dry Neurologic: CN's II-XI intact bilaterally; no focal motor deficits Speech / Cognition: normal speech Psychiatric: A+Ox3, euthymic affect Results & Data Results & Data ([facility]) Vital Signs (Past 12 Hours) Vital Signs Temp Pulse Resp BP Pulse Ox 02/13/20 18:56 75 16 94 02/13/20 18:38 36.7 C 77 25 H 175/88 H 95 Laboratory Results Laboratory Results - last 24 hr 02/13/20 02/13/20 02/13/20 18:38 18:38 18:38 WBC 5.38 RBC 4.37 Hgb 13.4 POC Hgb Hct 40.5 POC Hct MCV 92.7 MCH 30.7 MCHC 33.1 RDW Std Deviation 46.1 RDW Coeff of Alphonse 13.5 Plt Count 271 MPV 9.3 PT 10.4 INR 1.0 APTT 26.2 PTT Ratio 0.9 POC Sodium Sodium 137 POC Potassium Potassium 3.7 POC Chloride Chloride 103 Carbon Dioxide 26 POC Total CO2 Anion Gap 8.0 POC Anion Gap POC BUN BUN 10 Creatinine 0.72 POC Creatinine Est Cr Clr Drug Dosing 48.7 Est GFR ( Amer) 86.1 Est GFR (Non-Af Amer) 74.3 BUN/Creatinine Ratio 13.8 Glucose 123 H POC Glucose POC Glucose (other) Calcium 9.4 POC Ioniz Calcium Sary Magnesium 1.9 Total Bilirubin 0.3 AST 15 ALT 21 Alkaline Phosphatase 77 Troponin I < 0.015 Total Protein 7.0 Albumin 3.4 Globulin 3.6 Albumin/Globulin Ratio 0.9 02/13/20 02/13/20 18:53 19:11 WBC RBC Hgb POC Hgb 13.6 Hct POC Hct 40 MCV MCH MCHC RDW Std Deviation RDW Coeff of Alphonse Plt Count MPV PT INR APTT PTT Ratio POC Sodium 136 Sodium POC Potassium 3.7 Potassium POC Chloride 99 L Chloride Carbon Dioxide POC Total CO2 23 L Anion Gap POC Anion Gap 20.0 POC BUN 9 BUN Creatinine POC Creatinine 0.7 Est Cr Clr Drug Dosing Est GFR ( Amer) Est GFR (Non-Af Amer) BUN/Creatinine Ratio Glucose POC Glucose 127 H POC Glucose (other) 123 H Calcium POC Ioniz Calcium Sary 1.21 Magnesium Total Bilirubin AST ALT Alkaline Phosphatase Troponin I Total Protein Albumin Globulin Albumin/Globulin Ratio Code Status & VTE Plan Code Status DNR/DNI Supervising Physician Co-Signing Physician Notes Patient seen and examined, chart reviewed, case discussed with Dr. Maldonado and I agree with his assessment and plan as documented above. Briefly, patient is an 89yo female with HTN, HLP, moderate presenting with episode of slurred speech, aphasia and possible lower extremity weakness. Symptoms have completely resolved. At present patient with no complaints. She also had an episode of substernal chest pressure which has resolved as well. On exam she is afebrile, hypertensive at 175/88 otherwise stable, NAD Skin -no rash HEENT-NC/AT, PERRL, EOMI, Neck supple, MMM Heart - +S1/S2, regular, 3/6 DANGELO at 2nd ICS with radiation to carotids Lungs - CTA Abd - +BS, soft, NT/ND Ext - no edema Neuro - Speech clear, no facial droop, CN intact, sensation and strength intact, no notable deficits Labs and images reviewed. CT head with no acute intracranial findings. EKG with NSR, LBBB present on prior study from November. No acute ischemic changes Resident Activity Tracking Resident Involvement: Resident Care Provided Care Provided: [facility] Medicine
[2020-02-13] MEDS ORDERED: MoRPHine SULFATE 2 MG/ML CARP IV PRN (22:32)
[2020-02-13] MEDS ORDERED: ATORVASTATIN 40 MG TAB PO SCH (22:32)
[2020-02-13] MEDS ORDERED: ACETAMINOPHEN 325 MG TAB PO PRN (22:32)
[2020-02-13] MEDS ORDERED: ALUMINUM/MAGNESIUM SUSP 30 ML UDC PO PRN (22:32)
[2020-02-13] MEDS ORDERED: PHARMACIST DISCHARGE MED REC CONSULT PRN (22:32)
[2020-02-13] MEDS ORDERED: NITROGLYCERIN SL 0.4 MG/TAB TAB SL PRN (22:32)
[2020-02-13] MEDS ORDERED: ONDANSETRON INJ 2 MG/ML 2 ML VIAL IV PRN (22:32)
[2020-02-14] MEDS ORDERED: GADOBUTROL 65ML VIAL IV ONE (01:01)
[2020-02-14] MEDS ORDERED: LEVOTHYROXINE SODIUM 50 MCG TABLET PO SCH (06:30)
[2020-02-14 07:12] LABS: Basophils # (auto) 0.02 K/uL (0-0.2); Basophils % (auto) 0.4 %; Eosinophils # (auto) 0.24 K/uL (0-0.5); Eosinophils % (auto) 4.8 %; Hematocrit (blood only) 39.5 % (37-47); Hemoglobin 13.2 g/dL (12.0-16.0); Immature Granulocytes # (auto) 0.01 K/uL (0.00-0.02); Immature Granulocytes % (auto) 0.2 %; Lymphocytes # (auto) 1.03 K/uL (1.2-3.4); Lymphocytes % (auto) 20.7 %; Mean Corpuscular Hemoglobin 30.8 pg (25-34); Mean Corpuscular Hgb Conc 33.4 g/dL (32-36); Mean Corpuscular Volume 92.3 fL (80-100); Mean Platelet Volume 9.4 fL (7.4-10.4); Monocytes # (auto) 0.78 K/uL (0.11-0.59); Monocytes % (auto) 15.7 %; Neutrophils % (auto) 58.2 %; Platelet Count 256 K/uL (130-400); RDW Coefficient of Variation 13.6 % (11.5-14.5); Red Blood Count 4.28 M/uL (4.2-5.4); White Blood Count 4.98 K/uL (4.8-10.8)
--- NOTE | 2020-02-14 07:25 | Magnetic Resonance Report ---
NECK MRA HISTORY: Stroke. Slurred speech. Right facial drooping. TECHNIQUE: Gadolinium-enhanced MRA was performed following the intravenous injection of 6.3 cc of George avist contrast according to standard department protocol. All measurements were calculated based on N ASCET criteria. COMPARISON STUDY: Neck MRA 12/18/2012. FINDINGS: The aortic arch and proximal great vessels are widely patent. There is no significant sten osis, occlusion, or dissection identified within the bilateral common carotid, internal carotid, or v ertebral arteries. IMPRESSION: No significant stenosis, occlusion, or dissection identified within the carotid or vertebral arteries . ACT 112: Negative or not required by law. Electronically signed by: Addi Genao M.D. 02/14/2020 7:24 AM
--- NOTE | 2020-02-14 07:30 | Magnetic Resonance Report ---
MR ANGIOGRAM OF THE BRAIN CLINICAL HISTORY: Transient ischemic attack. COMPARISON STUDY: MRI of the brain performed concurrently on 02/13/2020. TECHNIQUE: 3-D [id number] MR angiography of the intracranial circulation is performed. 3-D tumble views are created and assessed. IV contrast was not administered for this examination. FINDINGS: The internal carotid arteries are widely patent bilaterally, as are the anterior and middle cerebral arteries. The vertebrobasilar system and posterior cerebral arteries are widely patent. The right vertebral artery is dominant. There is no aneurysm, high-grade stenosis, or focal vessel cuto ff seen throughout the intracranial circulation. The brain parenchyma is normal as visualized. IMPRESSION: Unremarkable MR angiogram of the brain. ACT 112: Negative or not required by law. Electronically signed by: Smith Kebede M.D. 02/14/2020 7:28 AM
[2020-02-14 07:31] LABS: BUN Creatinine Ratio 11.2 (10-20); Creatinine Clr Calc Pharmacy 49.8 ml/min; Est GFR (African American) 89.5; Est GFR (Non-African American) 77.2
--- NOTE | 2020-02-14 08:08 | Magnetic Resonance Report ---
MRI OF THE BRAIN WITHOUT AND WITH IV CONTRAST CLINICAL HISTORY: Transient ischemic attack. COMPARISON STUDY: MRI of the brain December 12, 2017. Head CT February 13, 2020. TECHNIQUE: Utilizing a 1.5 Johanne magnet and dedicated coil, multiplanar, multiecho imaging of the br ain was performed pre and postcontrast administration. IV administration of 6.3 mL of Gadavist contr ast was uneventful. Thin cut T1 post contrast imaging with multiplanar reformats was performed. FINDINGS: There no foci of restricted diffusion to suggest acute infarct. No acute intracranial hemor rhage, midline shift or mass effect is present. Ventricular system is stable. Basilar cisterns are pa tent. There are no extra-axial collections. Flow-voids for the major intracranial vessels are present . There is no intracranial mass or pathologic enhancement. White matter T2 hyperintense foci are beatrice lar to MRI of December 12, 2017. The appearance of the brain is unchanged. Calvarial signal is normal. Or bits are unremarkable. IMPRESSION: 1. No acute intracranial findings. No significant change since MRI of December 12, 2017. 2. No intracranial mass or pathologic enhancement. ACT 112: Negative or not required by law. Electronically signed by: Bright Abel M.D. 02/14/2020 8:07 AM
--- NOTE | 2020-02-14 08:39 | Neurology Consultation ---
Date of Consultation February 14, 2020 Assessment & Plan (1) TIA (transient ischemic attack): 89-year-old female with past medical history hyperlipidemia, hypertension, hypothyroidism, vitamin D deficiency presents with concerns of expressive aphasia/slurred speech and chest pressure, both of which have since resolved. TIA vs Hypertensive Urgency Head CT, MRA head neck with and without contrast and MRI brain with and without contrast negative for any acute changes, stenoses of vessels or signs of ischemia. Given patient's elevated blood pressures on admission possible that this was hypertensive urgency with her symptoms being secondary to elevated blood p ressures as opposed to rapidly improving TIA without signs of vascular occlusion Agree with increasing atorvastatin from 20 mg to 40 mg per primary team; Pt contraindicated to be at doses higher than 40mg due hemorrhagic stroke. If considering this event to be TIA patient would benefit from dual antiplatelet therapy for 21 days with Plavix and ASA, and continuing forward with Plavix alone after. Echo completed pending read Asymptomatic and no focal physical exam findings at this time. Agree with holding antihypertensive to allow for permissive hypertension. May need to discuss hypertensive regimen going forward with PCP regarding increasing from 12.5 to 25 mg losartan per day. All else per primary team. Thank you for this interesting consult. History of Present Illness Reason for Consultation: TIA Attending Physician: Jareth Novak DO History of Present Illness Is an 89-year-old female with a past medical history of hypertension who presented to the emergency department yesterday evening at 7 PM after having difficulty and slurred speech for 2 hours. She states that around 530 she started finding it difficult to say words appropriately and was slurring her speech. She denies ever having had a stroke before and was concerned that she was having a "mini stroke" which is why she came in. At the onset of symptoms she was some degree of chest tightness but denied any chest pressure or radiation. She denied any shortness of breath at that time, blurry vision, lightheadedness or dizziness. She did say that while she was able to walk her legs felt a little weak. She denied any abnormal movements or inability to move her hands or legs. She denied any numbness or tingling at that time. She states that her symptoms had completely resolved by the time she got to the ER within 2 hours of onset and she expected to go home. She does not smoke, has been on atorvastatin 20 for cholesterol control and has been taking a baby aspirin daily as well as losartan 12.5 at nighttime for blood pressure control. This morning she denies any chest pain, shortness of breath, dizziness, lightheadedness, numbness, tingling, blurriness of vision, headache. She feels well and is anxious to go home. Allergies Allergy/AdvReac Type Severity Reaction Status Date / Time Iodinated Contrast Media Allergy Severe ANAPHYLAXIS Verified 02/13/20 20:02 Home Medications Home Medications Medication Instructions Recorded Confirmed Type aspirin 81 mg tablet,delayed 81 mg PO DAILY tab 10/21/18 02/13/20 History release cholecalciferol (vitamin D3) 50 4,000 units PO DAILY cap 03/28/19 02/13/20 History mcg (2,000 unit) capsule atorvastatin 20 mg tablet 20 mg PO HS #90 tab 05/17/19 02/13/20 Rx levothyroxine 50 mcg capsule 50 mcg PO DAILY #90 cap 10/25/19 02/13/20 Rx losartan 12.5 mg PO HS 12/05/19 02/13/20 History Patient History Medical History Aortic stenosis Colon cancer Graves disease Hyperlipidemia Hypertension Hypothyroidism Surgical History Cancer [id number] YRS AGO History of appendectomy History of colonoscopy X MULTIPLE History of tonsillectomy Family History Father Colorectal cancer Mother Cancer Brother Laryngeal cancer Sister Dementia Social History Smoking Status: Never smoker Second Hand Exposure: No; Hx Alcohol Use: No Hx Substance Use: No Preferred Language: Ethiopian Communication Ability: Effective Stamp Classifier Required: No Beliefs That Will Affect Care: None Current Living Situation: Family Feels Safe at Home: Yes Safety Concerns: Feels Safe At This Time Assistive Devices: Glasses Review of Systems Respiratory: no cough and no dyspnea Cardiovascular: no chest pain, no dyspnea and no edema Neurologic: no gait abnormality, no unsteadiness, no localized weakness, no tingling, no numbness, no dizziness, no headache(s), no abnormal speech and no confusion Physical Exam Physical Exam: Constitutional: Well-appearing 89-year-old female laying comfortably in bed in no acute distress HEENT:Face symmetric without facial droop, EOMI, PERRLA Cardiac: RRR with crescendo-decrescendo murmur heard at right upper sternal border with radiation to BL carotids Neuro: Nerves II through XII intact, strength equal in bilateral upper and lower extremities, no focal deficits in strength or sensation, patellar reflexes difficult to elicit in bed, no clonus, ankle reflexes 2+ Results & Data ([facility]) Vital Signs (Past 12 Hours) Vital Signs Temp Pulse Pulse Resp BP BP Pulse Ox 02/14/20 08:08 36.7 C 86 20 155/76 H 94 02/14/20 07:23 37.4 C 71 18 130/74 95 02/14/20 03:12 71 02/14/20 03:00 36.3 C L 79 18 132/69 97 02/13/20 22:55 179/79 H 02/13/20 22:32 16 02/13/20 22:26 36.6 C 75 16 181/92 H 97 02/13/20 21:30 65 20 149/96 H 95 02/13/20 21:15 67 20 166/73 H 95 02/13/20 21:00 66 20 175/79 H 94 02/13/20 20:51 16 02/13/20 20:45 66 20 172/78 H 94 02/13/20 20:30 71 20 170/82 H 94 Laboratory Results WBC 4.98 K/uL (4.8-10.8) 02/14/20 06:53 RBC 4.28 M/uL (4.2-5.4) 02/14/20 06:53 Hgb 13.2 g/dL (12.0-16.0) 02/14/20 06:53 POC Hgb 13.6 g/dl (12.0-16.0) 02/13/20 19:11 Hct 39.5 % (37-47) 02/14/20 06:53 POC Hct 40 % (37-47) 02/13/20 19:11 MCV 92.3 fL (80-100) 02/14/20 06:53 MCH 30.8 pg (25-34) 02/14/20 06:53 MCHC 33.4 g/dL (32-36) 02/14/20 06:53 RDW Std Deviation 46.0 fL (36.4-46.3) 02/14/20 06:53 RDW Coeff of Alphonse 13.6 % (11.5-14.5) 02/14/20 06:53 Plt Count 256 K/uL (130-400) 02/14/20 06:53 MPV 9.4 fL (7.4-10.4) 02/14/20 06:53 Immature Gran % (Auto) 0.2 % 02/14/20 06:53 Neut % (Auto) 58.2 % 02/14/20 06:53 Lymph % (Auto) 20.7 % 02/14/20 06:53 [place] % (Auto) 15.7 % 02/14/20 06:53 Eos % (Auto) 4.8 % 02/14/20 06:53 Baso % (Auto) 0.4 % 02/14/20 06:53 Neut # (Auto) 2.90 K/uL (1.4-6.5) 02/14/20 06:53 Lymph # (Auto) 1.03 K/uL (1.2-3.4) L 02/14/20 06:53 [place] # (Auto) 0.78 K/uL (0.11-0.59) H 02/14/20 06:53 Eos # (Auto) 0.24 K/uL (0-0.5) 02/14/20 06:53 Baso # (Auto) 0.02 K/uL (0-0.2) 02/14/20 06:53 Immature Gran # (Auto) 0.01 K/uL (0.00-0.02) 02/14/20 06:53 PT 10.4 Seconds (9.0-12.0) 02/13/20 18:38 INR 1.0 (0.9-1.1) 02/13/20 18:38 APTT 26.2 Seconds (21.0-31.0) 02/13/20 18:38 PTT Ratio 0.9 02/13/20 18:38 POC Sodium 136 mmol/L (135-144) 02/13/20 19:11 Sodium 142 mmol/L (136-145) 02/14/20 06:53 POC Potassium 3.7 mmol/L (3.3-5.0) 02/13/20 19:11 Potassium 4.0 mmol/L (3.5-5.1) 02/14/20 06:53 POC Chloride 99 mmol/L (101-112) L 02/13/20 19:11 Chloride 108 mmol/L (98-107) H 02/14/20 06:53 Carbon Dioxide 29 mmol/L (21-32) 02/14/20 06:53 POC Total CO2 23 mmol/L (24-31) L 02/13/20 19:11 Anion Gap 5.0 (3-11) 02/14/20 06:53 POC Anion Gap 20.0 mmol/L (16-25) 02/13/20 19:11 POC BUN 9 mg/dl (7-18) 02/13/20 19:11 BUN 8 mg/dl (7-18) 02/14/20 06:53 Creatinine 0.69 mg/dl (0.6-1.2) 02/14/20 06:53 POC Creatinine 0.7 mg/dl (0.6-1.3) 02/13/20 19:11 Est Cr Clr Drug Dosing 49.8 ml/min 02/14/20 06:53 Est GFR ( Amer) 89.5 02/14/20 06:53 Est GFR (Non-Af Amer) 77.2 02/14/20 06:53 BUN/Creatinine Ratio 11.2 (10-20) 02/14/20 06:53 Glucose 87 mg/dl (70-99) 02/14/20 06:53 POC Glucose 127 mg/dl (70-99) H 02/13/20 18:53 POC Glucose (other) 123 mg/dl (70-99) H 02/13/20 19:11 Calcium 9.0 mg/dl (8.5-10.1) 02/14/20 06:53 POC Ioniz Calcium Sary 1.21 mmol/l (1.12-1.32) 02/13/20 19:11 Magnesium 1.9 mg/dl (1.8-2.4) 02/13/20 18:38 Total Bilirubin 0.3 mg/dl (0.2-1) 02/13/20 18:38 AST 15 U/L (15-37) 02/13/20 18:38 ALT 21 U/L (12-78) 02/13/20 18:38 Alkaline Phosphatase 77 U/L (45-117) 02/13/20 18:38 Troponin I < 0.015 ng/ml (0-0.045) 02/14/20 06:53 Total Protein 7.0 gm/dl (6.4-8.2) 02/13/20 18:38 Albumin 3.4 gm/dl (3.4-5.0) 02/13/20 18:38 Globulin 3.6 gm/dl (2.5-4.0) 02/13/20 18:38 Albumin/Globulin Ratio 0.9 (0.9-2) 02/13/20 18:38 Triglycerides 91 mg/dl (0-150) 02/14/20 06:53 Cholesterol 174 mg/dl (0-200) 02/14/20 06:53 LDL Cholesterol, Calc 76 mg/dl 02/14/20 06:53 VLDL Cholesterol, Calc 18 mg/dl 02/14/20 06:53 HDL Cholesterol 80 mg/dl 02/14/20 06:53 Cholesterol/HDL Ratio 2 02/14/20 06:[address]: No acute intracranial findings. No change in appearance of the brain MRA head/neck w/wo contrast and MRI Brain w/wo contrast negative EKG: Regular rate with new LBBB, no ST segment changes Resident Activity Tracking Resident Involvement: Resident Care Provided Care Provided: Adult [facility] Medicine
[2020-02-14] MEDS ORDERED: CHOLECALCIFEROL 1,000 UNITS 25 MCG TAB PO SCH (09:00)
[2020-02-14] MEDS ORDERED: ASPIRIN 81 MG ECTAB PO SCH (09:00)
[2020-02-14] MEDS ORDERED: CLOPIDOGREL BISULFATE 75 MG TAB PO SCH (09:00)
[2020-02-14 10:00] LABS: Estimated Average Glucose 114 mg/dl; Hemoglobin A1C 5.6 % (4.5-5.6)
[2020-02-14] MEDS ORDERED: STROKE PATIENT DISCHARGE STA (13:37)
--- NOTE | 2020-02-14 13:39 | Discharge Summary ---
Date of Service February 14, 2020 Admission HPI Per Admitting Provider 89-year-old female with past medical history hyperlipidemia, hypertension, hypothyroidism, vitamin D deficiency presents via EMS with concerns of strokelike symptoms. Around 5:30 PM this evening patient noticed that she is having signs of expressive aphasia, slurred speech that was additionally noted by daughter. Patient notes that the symptoms came and went roughly 3 times over a 30-minute period. Associated right-sided facial droop, per daughter. Patient also notes that she felt weakness in her legs bilaterally. By the time EMS had arrived patient notes that all symptoms had resolved. Patient is on 81 mg aspirin daily, but no other blood thinners. Patient additionally notes complaints of chest pressure that was constant, nonradiating, 2 out of 10 severity around the same time. No known alleviating or exacerbating factors. Regarding the strokelike symptoms and chest pressure, patient has never had anything similar to this in the past ever before. Patient otherwise denies any fevers, chills, sweats, nausea, vomiting, diarrhea, shortness of breath, palpitations, edema, syncope or near syncope, edith pain, urinary symptoms, headache, impaired swallowing, change in vision, known sick contacts or recent travel anywhere. Patient no other acute concerns or complaints. At present patient states that she feels fine and could go home. Pertinent labs: Unremarkable CBC, CMP. Initial Trop negative EKG: Normal sinus rhythm, left bundle branch block. No acute ischemic changes noted. Chest x-ray: No acute cardiopulmonary findings Head CT: No acute intracranial findings. No change in appearance of the brain ER course: P.o. aspirin 324 mg Social history: Patient denies any tobacco, alcohol, illicit drug use. Principal Diagnosis TIA vs transient neurologic symptoms due to vasospasm Discharge Exam Constitutional WD/WN, vitals as above Eyes PERRL, conjunctivae normal, anicteric sclerae ENMT external ear and nose normal, oropharynx normal Neck trachea midline, no thyromegaly Respiratory normal respiratory effort, lungs clear to auscultation Cardiovascular RRR, no murmur, no edema Gastrointestinal (Abdomen) normal bowel sounds, soft, nontender, no hepatosplenomegaly Musculoskeletal no cyanosis or clubbing, extremities motor strength 5/5 Skin no rashes, warm and dry Neurologic patellar DTR's 2+ bilat, sensation intact and PERRL, EOMI, accommodation nl, no face palsy, no dysarthria Psychiatric A+Ox3, euthymic affect Lymphatic no cervical or axillary lymphadenopathy Discharge Data Allergies Allergy/AdvReac Type Severity Reaction Status Date / Time Iodinated Contrast Media Allergy Severe ANAPHYLAXIS Verified 02/18/20 14:22 Consultations 02/13/20 20:25 ED Decision to Admit Stat 02/13/20 22:32 Consult Case Management - Discharge Planning Routine Consult Neurology Routine Ordered Studies 02/13/20 18:38 CT head/brain wo con Stat 02/13/20 22:32 MR angio head wo con Urgent MR angio neck wo/w con Urgent MR brain wo/w con Urgent Hospital Course (1) TIA (transient ischemic attack): possible TIA vs neurologic symptoms from cerebral vasospasm discussed with Dr. Pina, the MRI of the brain shows no evidence of ischemic stroke her symptoms are completely resolved Dr. Pina recommends aspirin and Plavix together for three weeks, then stop aspirin and only use Plavix 75mg daily increase Lipitor from 20mg to 40mg blood pressure at goal on Losartan 12.5mg, if it is elevated in the office then could increase Losartan to 25mg daily no afib on monitor no evidence or history of diabetes follow up with PCP for blood pressure check Total Time Total Time Spent Total Time Spent (In Minutes): 30 Total Time Includes: Examination of the Patient, Discharge Planning, Medication Reconciliation and Communication With Other Providers (Dr. Pina) Discharge Plan Discharge Items Patient Disposition: Home - Self-Care Reason For Visit: CVA Discharge Diagnosis: Transient ischemic attack Hypertension Condition on Discharge: Good Activity: Resume your previous activity Weightbearing: Full weightbearing Non-emergency contact: Primary Care Provider Call non-emergency contact if: you have any medication questions Follow-up/Referrals: Todd Ceron MD [Primary Care Provider] - 02/18/20 2:30 pm (one week) Mike Pina MD [Physician] - (4-6 weeks) Diet: Low Sodium (2gm) Addtl Attending Provider Instructions: Medications: PLAVIX: 75mg daily, take with aspirin 81mg daily x 3 weeks then take only the Plavix ASPIRIN: 81mg daily, see above, stop after three weeks LIPITOR: dose increased from 20mg to 40mg at night time, new script sent, you can double up on the 20mg tablets that you have at home so you don't have to waste them TIA: MRI of the brain did not show any evidence of stroke evaluated by Dr. Pina from neurology, this could be TIA or neurological symptoms due to vasospasm, elevated blood pressure secondary stroke prevention with aspirin and Plavix together for three weeks then just Plavix increase Lipitor to 40mg daily, there would be no benefit to increase further than 40mg blood pressure is improving here in the hospital, could be a reaction to the transient ischemic attack as your body raises blood pressure to improve blood flow to the brain for now, recommend you continue the Losartan 12.5mg daily if your pressure is up in the office on follow up then Dr. Ceron can increase the Losartan please follow a low sodium diet, less than 2gm a day, read food labels so that you know how much sodium is in prepared food Risk Factors for Stroke: You can reduce your chances of stroke by working with your medical provider to adopt a healthy lifestyle. Some specific ways to lower your chance of stroke are: * If you are a smoker, now is the time to stop smoking cigarettes * If you are diabetic, improve the control of your blood sugars * Avoid excessive amounts of alcohol * Control high blood pressure * Lose weight if you are overweight * Be sure to lead an active lifestyle * Eat a healthy diet low in salt, cholesterol and fat You should know about other risk factors for stroke that you are unable to control. These include: * Age 55 years or older * Male gender * Certain racial groups: , or / * Family History of Stroke, Mini stroke or Heart Attack * Sickle Cell Disease Follow Up: It is important for you to keep your follow up appointments with your medical provider. Who to Call and When: Medical Emergencies: Call 911 immediately if you experience any of the fo llowing warning signs and symptoms of Stroke: * Sudden numbness or weakness of the face, arm or leg, especially on one side of the body * Sudden confusion, trouble speaking or understanding * Sudden trouble seeing in one or both eyes * Sudden trouble walking, dizziness, loss of balance or coordination * Sudden severe headache with no cause Do not delay calling 911 if you experience any warning signs or symptoms of a stroke. Delay in seeking medical attention may affect what treatments can be given to you. . Pending Studies at Discharge: Yes Studies:: echocardiogram results Stand-Alone Forms: Medications to Prevent Stroke, My [facility], Smoking Cessation Medications and DC Order Prescriptions: New atorvastatin 40 mg Tablet 40 mg PO HS 30 Days Qty: 30 RF: 3 clopidogrel 75 mg Tablet 75 mg PO QAM 30 Days Qty: 30 RF: 3 Continued levothyroxine 50 mcg capsule 50 mcg PO DAILY Qty: 90 RF: 3 cholecalciferol (vitamin D3) 50 mcg (2,000 unit) capsule 4,000 units PO DAILY RF: 0 Discontinued atorvastatin 20 mg tablet 20 mg PO HS Qty: 90 RF: 3 No Action losartan 25 mg tablet 25 mg PO HS RF: 0 Discharge Orders: Discharge Order (Routine); Ordered 02/14/20 Ordered By: Jareth Novak Admission Data Admit Date/Time: 02/13/20 21:27 Attending Provider: Jareth Novak Admit Provider: Juan Maldonado Primary Care Provider: Todd Ceron Other Providers: Carmencita Anthony Emile Other Interventions: Discharge Summary Assessment (RN) Last Done: 02/14/20 14:14 Coding Level of Care Code 03637 OBS Care - Discharge Diagnoses TIA (transient ischemic attack) G45.9
--- NOTE | 2020-02-14 13:58 | Pharmacy Report ---
Pharmacist Stroke Counseling - Date of Service February 14, 2020 - Scope: Pharmacy has been consulted to provide medication discharge counseling for this patient admitted with transient ischemic attack as per the Pharmacist Discharge Counseling for Stroke Patients Protocol. - Medications on Discharge: Home Medications Medication Instructions Recorded Confirmed aspirin 81 mg tablet,delayed 81 mg PO DAILY tab 10/21/18 02/13/20 release cholecalciferol (vitamin D3) 50 4,000 units PO DAILY cap 03/28/19 02/13/20 mcg (2,000 unit) capsule losartan 12.5 mg PO HS 12/05/19 02/13/20 New Rx's Medication Instructions Recorded atorvastatin 20 mg tablet 20 mg PO HS #90 tab 05/17/19 levothyroxine 50 mcg capsule 50 mcg PO DAILY #90 cap 10/25/19 atorvastatin 40 mg PO HS 30 Days #30 tab 02/14/20 clopidogrel 75 mg PO QAM 30 Days #30 tab 02/14/20 - Action: The above medications, specifically ones for stroke treatment/prophylaxis, have been reviewed in detail with the patient prior to discharge. This includes indication, common adverse reactions, drug interactions, and medication administration. Medication counseling has been employed using the teach-back method to ensure understanding. - Outcome: The patient demonstrated understanding of the medications. Additional comments: - Counseling completed via telephone secondary to the COVID-19 pandemic. - Patient was given time to have all questions answered. - Demonstrated clear understanding of 21 days of DAPT followed by Plavix and Atorvastatin dose increase. Thank you for allowing pharmacy to be involved in the care of this patient. Please call [phone] with any additional questions
--- NOTE | 2020-02-14 16:54 | XCELERA ---
[id number]
--- NOTE | 2020-02-15 05:38 | Electrocardiogram Report ---
Test Reason : Blood Pressure : / mmHG Vent. Rate : 079 BPM Atrial Rate : 079 BPM P-R Int : 172 ms QRS Dur : 132 ms QT Int : 408 ms P-R-T Axes : 066 -27 035 degrees QTc Int : 467 ms Normal sinus rhythm Left bundle branch block Abnormal ECG When compared with ECG of 05-DEC-2019 15:56, No significant change Confirmed by Colten Moon ([id number]) on 02/15/2020 5:38:47 AM Referred By: REFERRED SELF Confirmed By:Colten Moon
--- NOTE | 2020-02-17 15:43 | Neurology Consultation ---
Date of Consultation February 17, 2020 Assessment & Plan (1) TIA (transient ischemic attack): 89-year-old female with past medical history hyperlipidemia, hypertension, hypothyroidism, vitamin D deficiency presents with concerns of expressive aphasia/slurred speech and chest pressure, both of which have since resolved. TIA vs Hypertensive Urgency Head CT, MRA head neck with and without contrast and MRI brain with and without contrast negative for any acute changes, stenoses of vessels or signs of ischemia. Given patient's elevated blood pressures on admission possible that this was hypertensive urgency with her symptoms being secondary to elevated blood pres sures as opposed to rapidly improving TIA without signs of vascular occlusion Agree with increasing atorvastatin from 20 mg to 40 mg per primary team; Pt contraindicated to be at doses higher than 40mg due hemorrhagic stroke. If considering this event to be TIA patient would benefit from dual antiplatelet therapy for 21 days with Plavix and ASA, and continuing forward with Plavix alone after. Echo completed; left ventricular hypertrophy with EF 55-60% Asymptomatic and no focal physical exam findings at this time. Agree with holding antihypertensive to allow for permissive hypertension. May need to discuss hypertensive regimen going forward with PCP regarding increasing from 12.5 to 25 mg losartan per day. All else per primary team. Thank you for this interesting consult. Supervising Physician Co-Signing Physician Notes This patient was seen with the resident Sandhya Guzmán MD, and I agree with her assessment and plan. I obtained a history and physical from the patient myself. Patient had the acute onset of a speech difficulty around 5-530 p.m. on February 12. She knew what she wanted to say but could not get the words out. She could make some sounds. She understood what people to told her and she had no pain or headache, vision issues, weakness, numbness, incontinence of urine, memory probl ems/ confusion, or gait issues. It lasted about 2 hours and then resolved. She has had no further symptoms since. The patient has a history of hypertension and dyslipidemia. She is a former cigarette smoker (Quitting in her 50s). On neurologic examination she is awake and alert. Speech is without aphasia or dysarthria. Mood is normal and affect is appropriate. She has good mentation and memory. Extraocular eye muscles are intact without nystagmus. There is no facial droop. Tongue is midline. Coordination is normal in the arms. Gait is stable but cautious. Strength is 5/5 diffusely in all major muscle groups in arms and legs both proximally distally and reflexes are 1/4 throughout. Toes are downgoing plantar stimulation bilaterally. Patient has a history of a brief TIA consisting of expressive aphasia on February 12. Currently she is neurologically back to baseline with no focal neurologic findings, meningeal signs, or encephalopathy. The etiology of this TIA is likely related to hypertension and small vessel ischemic disease. Her MRI of the brain does show atrophy and small vessel ischemic disease consistent with her age. Hypertension and dyslipidemia are her main risk factors. Recommend blood pressure control, aiming for a mean arterial pressure of approximately 95-100. Continue with dual antiplatelet therapy of 81 milligram aspirin +70 5 milligram clopidogrel for 3 weeks then discontinue the aspirin a remain on clopidogrel alone. Echocardiogram is pending. I have no further neurologic testing or treatment recommendations to make at this time otherwise and can follow up as an outpatient if desired. -Da Pina MD History of Present Illness Attending Physician: Jareth Novak DO History of Present Illness Swetha is an 89-year-old female with a past medical history of hypertension who presented to the emergency department yesterday evening at 7 PM after having difficulty and slurred speech for 2 hours. She states that around 530 she started finding it difficult to say words appropriately and was slurring her speech. She denies ever having had a stroke before and was concerned that she was having a "mini stroke" which is why she came in. At the onset of symptoms she was some degree of chest tightness but denied any chest pressure or radiation. She denied any shortness of breath at that time, blurry vision, lightheadedness or dizziness. She did say that while she was able to walk her legs felt a little weak. She denied any abnormal movements or inability to move her hands or legs. She denied any numbness or tingling at that time. She states that her symptoms had completely resolved by the time she got to the ER within 2 hours of onset and she expected to go home. She does not smoke, has been on atorvastatin 20 for cholesterol control and has been taking a baby aspirin daily as well as losartan 12.5 at nighttime for blood pressure control. This morning she denies any chest pain, shortness of breath, dizziness, lightheadedness, numbness, tingling, blurriness of vision, headache. She feels well and is anxious to go home. Allergies Allergy/AdvReac Type Severity Reaction Status Date / Time Iodinated Contrast Media Allergy Severe ANAPHYLAXIS Verified 02/13/20 20:02 Home Medications Home Medications Medication Instructions Recorded Confirmed Type aspirin 81 mg tablet,delayed 81 mg PO DAILY tab 10/21/18 02/15/20 History release cholecalciferol (vitamin D3) 50 4,000 units PO DAILY cap 03/28/19 02/15/20 History mcg (2,000 unit) capsule levothyroxine 50 mcg capsule 50 mcg PO DAILY #90 cap 10/25/19 02/15/20 Rx losartan 12.5 mg PO HS 12/05/19 02/15/20 History atorvastatin 40 mg PO HS 30 Days #30 tab 02/14/20 02/15/20 Rx clopidogrel 75 mg PO QAM 30 Days #30 tab 02/14/20 02/15/20 Rx Patient History Medical History Aortic stenosis Colon cancer Graves disease Hyperlipidemia Hypertension Hypothyroidism Surgical History Cancer [id number] YRS AGO History of appendectomy History of colonoscopy X MULTIPLE History of tonsillectomy Family History (Updated 02/14/20 @ 11:43 by Sandhya Guzmán MD) Father Colorectal cancer Mother Cancer Brother Laryngeal cancer Sister ALS (amyotrophic lateral sclerosis) Social History Smoking Status: Never smoker Second Hand Exposure: No; Hx Alcohol Use: No Hx Substance Use: No Preferred Language: Palestinian Communication Ability: Effective Family [employer] Consumer Sciences Teacher Required: No Beliefs That Will Affect Care: None Current Living Situation: Family Feels Safe at Home: Yes Assistive Devices: Glasses Review of Systems Respiratory: no cough and no dyspnea Cardiovascular: no chest pain, no dyspnea and no edema Neurologic: no gait abnormality, no unsteadiness, no localized weakness, no tingling, no numbness, no dizziness, no headache(s), no abnormal speech and no confusion Exam (Neuro) Physical Exam: Constitutional: Well-appearing 89-year-old female laying comfortably in bed in no acute distress HEENT:Face symmetric without facial droop, EOMI, PERRLA Cardiac: RRR with crescendo-decrescendo murmur heard at right upper sternal border with radiation to BL carotids Neuro: Nerves II through XII intact, strength equal in bilateral upper and lower extremities, no focal deficits in strength or sensation, patellar reflexes difficult to elicit in bed, no clonus, ankle reflexes 2+ Results & Data ([facility]) Vital Signs (Past 12 Hours) Vital Signs Temp Pulse Resp BP Pulse Ox 36.7 C 77 25 H 175/88 H 95 02/13/20 18:38 02/13/20 18:38 02/13/20 18:38 02/13/20 18:38 02/13/20 18:38 Laboratory Results Laboratory Results WBC 4.98 K/uL (4.8-10.8) 02/14/20 06:53 RBC 4.28 M/uL (4.2-5.4) 02/14/20 06:53 Hgb 13.2 g/dL (12.0-16.0) 02/14/20 06:53 POC Hgb 13.6 g/dl (12.0-16.0) 02/13/20 19:11 Hct 39.5 % (37-47) 02/14/20 06:53 POC Hct 40 % (37-47) 02/13/20 19:11 MCV 92.3 fL (80-100) 02/14/20 06:53 MCH 30.8 pg (25-34) 02/14/20 06:53 MCHC 33.4 g/dL (32-36) 02/14/20 06:53 RDW Std Deviation 46.0 fL (36.4-46.3) 02/14/20 06:53 RDW Coeff of Alphonse 13.6 % (11.5-14.5) 02/14/20 06:53 Plt Count 256 K/uL (130-400) 02/14/20 06:53 MPV 9.4 fL (7.4-10.4) 02/14/20 06:53 Immature Gran % (Auto) 0.2 % 02/14/20 06:53 Neut % (Auto) 58.2 % 02/14/20 06:53 Lymph % (Auto) 20.7 % 02/14/20 06:53 Quay % (Auto) 15.7 % 02/14/20 06:53 Eos % (Auto) 4.8 % 02/14/20 06:53 Baso % (Auto) 0.4 % 02/14/20 06:53 Neut # (Auto) 2.90 K/uL (1.4-6.5) 02/14/20 06:53 Lymph # (Auto) 1.03 K/uL (1.2-3.4) L 02/14/20 06:53 Quay # (Auto) 0.78 K/uL (0.11-0.59) H 02/14/20 06:53 Eos # (Auto) 0.24 K/uL (0-0.5) 02/14/20 06:53 Baso # (Auto) 0.02 K/uL (0-0.2) 02/14/20 06:53 Immature Gran # (Auto) 0.01 K/uL (0.00-0.02) 02/14/20 06:53 PT 10.4 Seconds (9.0-12.0) 02/13/20 18:38 INR 1.0 (0.9-1.1) 02/13/20 18:38 APTT 26.2 Seconds (21.0-31.0) 02/13/20 18:38 PTT Ratio 0.9 02/13/20 18:38 POC Sodium 136 mmol/L (135-144) 02/13/20 19:11 Sodium 142 mmol/L (136-145) 02/14/20 06:53 POC Potassium 3.7 mmol/L (3.3-5.0) 02/13/20 19:11 Potassium 4.0 mmol/L (3.5-5.1) 02/14/20 06:53 POC Chloride 99 mmol/L (101-112) L 02/13/20 19:11 Chloride 108 mmol/L (98-107) H 02/14/20 06:53 Carbon Dioxide 29 mmol/L (21-32) 02/14/20 06:53 POC Total CO2 23 mmol/L (24-31) L 02/13/20 19:11 Anion Gap 5.0 (3-11) 02/14/20 06:53 POC Anion Gap 20.0 mmol/L (16-25) 02/13/20 19:11 POC BUN 9 mg/dl (7-18) 02/13/20 19:11 BUN 8 mg/dl (7-18) 02/14/20 06:53 Creatinine 0.69 mg/dl (0.6-1.2) 02/14/20 06:53 POC Creatinine 0.7 mg/dl (0.6-1.3) 02/13/20 19:11 Est Cr Clr Drug Dosing 49.8 ml/min 02/14/20 06:53 Est GFR ( Amer) 89.5 02/14/20 06:53 Est GFR (Non-Af Amer) 77.2 02/14/20 06:53 BUN/Creatinine Ratio 11.2 (10-20) 02/14/20 06:53 Glucose 87 mg/dl (70-99) 02/14/20 06:53 POC Glucose 127 mg/dl (70-99) H 02/13/20 18:53 POC Glucose (other) 123 mg/dl (70-99) H 02/13/20 19:11 Estimat Average Glucose 114 mg/dl 02/14/20 06:53 Hemoglobin A1c 5.6 % (4.5-5.6) 02/14/20 06:53 Calcium 9.0 mg/dl (8.5-10.1) 02/14/20 06:53 POC Ioniz Calcium Sary 1.21 mmol/l (1.12-1.32) 02/13/20 19:11 Magnesium 1.9 mg/dl (1.8-2.4) 02/13/20 18:38 Total Bilirubin 0.3 mg/dl (0.2-1) 02/13/20 18:38 AST 15 U/L (15-37) 02/13/20 18:38 ALT 21 U/L (12-78) 02/13/20 18:38 Alkaline Phosphatase 77 U/L (45-117) 02/13/20 18:38 Troponin I < 0.015 ng/ml (0-0.045) 02/14/20 06:53 Total Protein 7.0 gm/dl (6.4-8.2) 02/13/20 18:38 Albumin 3.4 gm/dl (3.4-5.0) 02/13/20 18:38 Globulin 3.6 gm/dl (2.5-4.0) 02/13/20 18:38 Albumin/Globulin Ratio 0.9 (0.9-2) 02/13/20 18:38 Triglycerides 91 mg/dl (0-150) 02/14/20 06:53 Cholesterol 174 mg/dl (0-200) 02/14/20 06:53 LDL Cholesterol, Calc 76 mg/dl 02/14/20 06:53 VLDL Cholesterol, Calc 18 mg/dl 02/14/20 06:53 HDL Cholesterol 80 mg/dl 02/14/20 06:53 Cholesterol/HDL Ratio 2 02/14/20 06:[address]: No acute intracranial findings. No change in appearance of the brain MRA head/neck w/wo contrast and MRI Brain w/wo contrast negative EKG: Regular rate with new LBBB, no ST segment changes PG Care Time/CCT Total # of Minutes Spent Total Time Spent with Patient: Total time spent is greater than 50% in coordination of care (as documented) at patient's floor/unit and/or counseling patient: Coding Level of Care Code 12689 Initial Inpt Care Lvl 3 Diagnoses TIA (transient ischemic attack) G45.9 Resident Activity Tracking Resident Involvement: Resident Care Provided Care Provided: Adult Hospital Medicine
--- NOTE | 2020-02-18 20:36 | Coding Query ---
CODING CLARIFICATION Please provide further clarification regarding the presence of the TIA during this admission: Please remember that we are unable to code a diagnosis of rule out, probable, possible, questionable, or suspected. ( ) TIA was ruled out during this admission ( ) TIA was present during this admission ( x ) TIA presence could not be determined during this admission differential would be TIA vs vasospasm of cerebral vasculature will clarify in discharge summary ( ) Presenting symptoms were due to another cause, please document below: DIAGNOSIS: ( ) Other, please clarify: Thank you for your assistance, Jessica Shine - Passport Application Examiner [facility]
== END 2020-02-14 15:00 | disposition home or self-care (01) ==
LOC: ED 18:35 → 2W 18:35 → SUATTDRO 21:27 → 2W 22:55